=== PATIENT | female | born 1945 | race Caucasian/White ===

== ENCOUNTER 2016-09-06 15:45 | Inpatient (IN) | payer MEDICAID ==
[~2016-09-06] VITALS: Ht 142.2 cm; Wt 89.0 kg
[~2016-09-06 15:45] MED LIST: ATOR40TA68 PO; CALC500T99 PO; CEPH500C PO; LEVO25TA53 PO; LOSA25TA5 PO
[2016-09-06] MEDS ORDERED: METHYLPREDNISOLONE 125 MG INJ IV STA (16:42)
[2016-09-06] MEDS ORDERED: IPRATROPIUM (NEB) 0.5 MG/2.5 ML AMP NEB STA (16:42)
[2016-09-06] MEDS ORDERED: ALBUTEROL 0.5% (NEB) 2.5 MG/0.5 ML AMP NEB STA (16:42)
[2016-09-06 17:12] LABS: BASOPHILS % 0.5 % (0.0-2.0); EOSINOPHILS # 0.7 10^3/ul (0.0-0.5); EOSINOPHILS % 6.8 % (0.0-7.0); HEMATOCRIT 41.4 % (37.0-47.0); HEMOGLOBIN 13.7 g/dl (12.0-16.0); LYMPHOCYTES # 2.4 10^3/ul (0.8-2.9); LYMPHOCYTES % 23.8 % (15.0-51.0); MEAN CORPUSCULAR HEMOGLOBIN 30.4 pg (29.0-33.0); MEAN CORPUSCULAR HGB CONC 33.1 g/dl (32.0-37.0); MEAN CORPUSCULAR VOLUME 91.7 fl (82.0-101.0); MEAN PLATELET VOLUME 7.9 fl (7.4-10.4); MONOCYTE # 1.1 10^3/ul (0.3-0.9); MONOCYTES % 10.8 % (0.0-11.0); NEUTROPHIL # 5.8 10^3/ul (1.6-7.5); NEUTROPHILS % 58.1 % (39.0-77.0); PLATELET COUNT 246 10^3/UL (140-440); RED BLOOD COUNT 4.52 10^6/ul (4.20-5.40)
[2016-09-06 17:18] LABS: CONDITION 1; LH ANALYZER COMMENTS 1
[2016-09-06 17:22] LABS: CHLORIDE 103 mmol/L (97-110); POTASSIUM 3.9 mmol/L (3.5-5.1); SODIUM 144 mmol/L (135-144)
[2016-09-06 17:25] LABS: ANION GAP 15 (8-16); BLOOD UREA NITROGEN 10 mg/dl (7-20); CALCIUM 8.9 mg/dl (8.4-10.2); CARBON DIOXIDE 30 mmol/L (21-31); CREATININE 0.61 mg/dl (0.44-1.00); GLUCOSE 121 mg/dl (70-220)
[2016-09-06] MEDS ORDERED: ALBUTEROL 0.5% (NEB) 2.5 MG/0.5 ML AMP INH STA ×2 (17:32→19:21)
--- NOTE | 2016-09-06 17:32 | RADRPT ---
PROCEDURE: XR Chest. CLINICAL INDICATION: Asthma exacerbation. Cough. Shortness of breath. TECHNIQUE: Single frontal view. COMPARISON: 10/02/2015. FINDINGS: There is mild left basilar atelectasis. The lungs are otherwise clear. The heart size is normal. There is no pleural effusion. There is no pneumothorax. IMPRESSION: 1. Mild left basilar atelectasis. 2. Otherwise normal chest radiograph. RPTAT: QQ .Buck Fuller MD, MD Date Time Electronically viewed and signed by .Buck Fuller MD, MD on 09/06/2016 17:31 .R/
[2016-09-06 17:44] LABS: TROPONIN-I < 0.012 ng/ml (0.00-0.12)
[2016-09-06] MEDS ORDERED: GUAIFENESIN/DM 5ML CUP PO ONE (18:30)
[2016-09-06] MEDS ORDERED: KETOROLAC 15 MG INJ IV STA (18:39)
[2016-09-06] MEDS ORDERED: LOSA50TA6 PO (19:16)
[2016-09-06] MEDS ORDERED: IPRATROPIUM (NEB) 0.5 MG/2.5 ML AMP INH STA (19:21)
[2016-09-06] MEDS ORDERED: AZIT250T6 PO (19:23)
[2016-09-06] MEDS ORDERED: DEXT1DRO OP (19:25)
[2016-09-06] MEDS ORDERED: UDROBDM PO (19:26)
--- NOTE | 2016-09-06 20:37 | ERA ---
ER Documentation Chief Complaint Date/Time DATE: 09/06/16 TIME: 20:32 Chief Complaint SOB/COUGH X 8 DAYS HPI This is a 71-year-old female who presents to the emergency room for evaluation of shortness of breath, cough and generalized wheezing for the past 7 days. This patient has not been on any medications to help her with her breathing came to the ER today for evaluation. She denies any chest pain or palpitations associated with this. ROS All systems reviewed and are negative except as per history of present illness. Medications Home Meds Reported Medications Guaifenesin-Dextromethorphan* (Robitussin* DM) 100MG/10MG/5ML Syrup, 5 ML PO Q4H Y for COUGH, ML 09/06/16 Dextran 70/Hypromellose/Pf (Tears Naturale Free Drops) 1 Each Droperette, 1 EACH OP BID 09/06/16 Azithromycin* (Azithromycin*) 250 Mg Tablet, 500 MG PO DAILY, #1 TAB 09/06/16 Losartan Potassium* (Losartan Potassium*) 50 Mg Tablet, 50 MG PO DAILY, TAB 09/06/16 Calcium Carbonate ([id number]) 1 Tab Tablet, 1 TAB PO BID, TAB 10/02/15 Atorvastatin* (Atorvastatin*) 40 Mg Tablet, 40 MG PO DAILY, #30 TAB 10/02/15 Levothyroxine Sodium* (Levothyroxine Sodium*) 25 Mcg Tablet, 25 MCG PO BEFORE BREAKFAST, #30 TAB 10/02/15 Discontinued Reported Medications Losartan Potassium* (Losartan Potassium*) 25 Mg Tablet, 25 MG PO DAILY, TAB 10/02/15 Discontinued Scripts Cephalexin* (Cephalexin*) 500 Mg Capsule, 500 MG PO BID for 5 Days, CAP Prov:TITO BURNS 10/05/15 Allergies Allergies: Coded Allergies: No Known Allergy (Unverified , 09/06/16) PMhx/Soc History of Surgery: Yes (BILATERAL KNEE REPLACEMENT, CHOLECYSTECTOMY, C/S X 3) Anesthesia Reaction: No Hx Neurological Disorder: No Hx Respiratory Disorders: No Hx Cardiac Disorders: Yes (HTN, HIGH CHOLESTEROL) Hx Psychiatric Problems: No Hx Miscellaneous Medical Probl: No Hx Alcohol Use: No Hx Substance Use: No Hx Tobacco Use: No (STOP 40 YRS. AGO) Smoking Status: Former smoker Physical Exam Vitals Vital Signs Date Time Temp Pulse Resp B/P Pulse Ox O2 Delivery O2 Flow Rate FiO2 09/06/16 19:20 122 32 88 21 09/06/16 19:02 117 24 139/76 95 Mask 09/06/16 18:51 109 26 172/81 98 Room Air 09/06/16 17:53 2.0 09/06/16 17:52 92 20 95 Nasal Cannula 2.0 09/06/16 17:20 97.8 114 20 157/88 95 Nasal Cannula 3.0 09/06/16 17:20 Nasal Cannula 3 09/06/16 16:52 87 20 96 21 09/06/16 15:56 98.0 93 18 225/95 94 Physical Exam INITIAL VITAL SIGNS: Reviewed by me GENERAL: The patient is well developed, mild respiratory distress, tachypnea HEENT: Pupils equal, round, and reactive to light. EOMI. There is no scleral icterus. NECK: C-spine is soft and supple, there is no meningismus. There is no cervical lymphadenopathy. LUNGS: Diffuse wheezing auscultated in the bilateral upper and lower lobes HEART: Tachycardic, no murmurs, clicks, rubs or gallops. ABDOMEN: Soft, non-tender, non-distended. There are bowel sounds in all four quadrants. No rebound or guarding. EXTREMITIES: There is no peripheral cyanosis or edema. No focal swelling or erythema. NEUROLOGICAL: The patient moves all four extremities with 5/5 strength. Cranial nerves II - XII are intact. Normal gait. Alert and oriented SKIN: There is no apparent rash or petechiae. HEME/LYMPHATIC: There is no evidence of excessive bruising or lymphedema. PSYCHIATRIC: The patient does not appear anxious or depressed. Result Diagram: 09/06/16 1700 09/06/16 1700 Results 24 hrs Laboratory Tests Test 09/06/16 17:00 Anion Gap 15 Basophils # 0.010^3/ul Basophils % 0.5% Blood Morphology Comment Blood Urea Nitrogen 10mg/dl Calcium Level 8.9mg/dl Carbon Dioxide Level 30mmol/L Chloride Level 103mmol/L Creatinine 0.61mg/dl Eosinophils # 0.710^3/ul Eosinophils % 6.8% Glucose Level 121mg/dl Hematocrit 41.4% Hemoglobin 13.7g/dl Lymphocytes # 2.410^3/ul Lymphocytes % 23.8% Mean Corpuscular Hemoglobin 30.4pg Mean Corpuscular Hemoglobin Concent 33.1g/dl Mean Corpuscular Volume 91.7fl Mean Platelet Volume 7.9fl Monocytes # 1.110^3/ul Monocytes % 10.8% Neutrophils # 5.810^3/ul Neutrophils % 58.1% Nucleated Red Blood Cells # 0.010^3/ul Nucleated Red Blood Cells % 0.0/100WBC Platelet Count 34021^3/UL Potassium Level 3.9mmol/L Red Blood Count 4.5210^6/ul Red Cell Distribution Width 15.0% Sodium Level 144mmol/L Troponin I < 0.012ng/ml White Blood Count 10.010^3/ul Current Medications Medications (Trade) Dose Ordered Sig/Juju Route PRN Reason Start Time Stop Time Status Last Admin Dose Admin Albuterol (Proventil 0.5% (Neb)) 10 mg ONCE STAT NEB 09/06/16 16:42 09/06/16 16:43 DC 09/06/16 16:51 Ipratropium Sherborn (Atrovent 0.02% (Neb)) 1.5 mg ONCE STAT NEB 09/06/16 16:42 09/06/16 16:43 DC 09/06/16 16:51 Methylprednisolone Sodium Succinate (Solu-Medrol) 125 mg ONCE STAT IV 09/06/16 16:42 09/06/16 16:43 DC 09/06/16 17:07 Albuterol (Proventil 0.5% (Neb)) 15 mg ONCE STAT INH 09/06/16 17:32 09/06/16 17:33 DC 09/06/16 17:51 Guaifenesin/ Dextromethorphan (Robitussin Dm Liquid Cup) 10 ml ONCE ONCE PO 09/06/16 18:30 09/06/16 18:31 DC 09/06/16 18:30 Ketorolac Tromethamine (Toradol) 15 mg ONCE STAT IV 09/06/16 18:39 09/06/16 18:40 DC 09/06/16 18:48 Albuterol (Proventil 0.5% (Neb)) 15 mg ONCE STAT INH 09/06/16 19:21 09/06/16 19:22 DC 09/06/16 19:32 Ipratropium Sherborn (Atrovent 0.02% (Neb)) 1 mg ONCE STAT INH 09/06/16 19:21 09/06/16 19:22 DC 09/06/16 19:31 Procedures/MDM EKG: Rate/Rhythm: Sinus tachycardia QRS, ST, T-waves: [No changes consistent w/ acute ischemia] Impression: [No evidence of ischemia or arrhythmia] Chest X-ray 1V Interpreted by me: Soft Tissue: Left lower lobe atelectasis Bones: No acute abnormalities Mediastinum/Cardiac Silhouette/Lungs: [No acute abnormalities] This 71-year-old female presents to the emergency room for evaluation of wheezing, shortness of breath and mild respiratory distress. When I evaluated her she was tachypnea, tachycardic, and had a pulse ox of 88% on room air. The patient was started on a breathing treatment with albuterol, Atrovent. She was given Solu-Medrol intravenously. When I reevaluated her she still continues to have mild wheezing and tachypnea. She was given an hour-long breathing treatment with albuterol. After her second breathing treatment she is still continued to wheeze and was given a third breathing treatment of albuterol, Atrovent. After her third breathing treatment I reevaluated her again and on room air she was 87%. I believe this patient will benefit from inpatient hospitalization and continue steroids and breathing treatments. The patient does not have any signs of pneumothorax or filtrate on x-ray. Lab work is within normal limits. EKG is nonischemic. The patient will be placed in for admission to a telemetry floor under the care of her panel physician Dr. Odom Critical Care: Excluding all billable procedures Time: 33 minutes Treatments/Evaluations: Emergent and rapid respiratory assessment and management with continuous monitoring. Advanced airway equipment at the ready, while the patient's respiratory symptoms were stabilized, multiple bedside evaluations, multiple breathing treatments, Departure Diagnosis: Primary Impression: Acute respiratory failure Additional Impressions: Acute bronchitis Acute respiratory failure with hypoxia Condition: ESTRELLITA Johnson DO Sep 06, 2016 20:37
[2016-09-06] MEDS ORDERED: ACETAMINOPHEN 325 MG TAB PO PRN (21:00)
[2016-09-06] MEDS ORDERED: ONDANSETRON 4 MG INJ IV PRN ×2 (21:00→23:30)
[2016-09-06 21:40] VITALS: TEMP 97.7
[2016-09-06 22:30] VITALS: BP 140/62; PULSE 110; RESP 22; Ht 142.2 cm; Wt 89.0 kg
[2016-09-06] MEDS: SALMETEROL/FLUTICASONE 250/50 INHA INH SCH (23:30)
[2016-09-06] MEDS ORDERED: LEVALBUTEROL (NEB) 1.25 MG/0.5 ML AMP HHN PRN (23:30)
[2016-09-06] MEDS ORDERED: IPRATROPIUM (NEB) 0.5 MG/2.5 ML AMP HHN PRN (23:30)
[2016-09-06 23:58] VITALS: BP 140/62; RESP 20
[2016-09-07] VITALS (12 sets, daily range): BP systolic 125–157; BP diastolic 58–79; PULSE 82–118; RESP 18–20
[2016-09-07] MEDS: GUAIFENESIN/DM 5ML CUP PO PRN (00:54)
[2016-09-07] MEDS: LEVOFLOXACIN 500MG/D5W (PMX) 100 ML IVPB SCH ×2 (00:56→23:33)
[2016-09-07] MEDS: ACETAMINOPHEN 325 MG TAB PO PRN (02:37)
[2016-09-07] MEDS: LEVOTHYROXINE 25 MCG TAB PO SCH (07:01)
[2016-09-07] MEDS: CALCIUM CARBONATE 1.25 GM TAB PO SCH ×2 (09:11→20:49)
[2016-09-07] MEDS: ATORVASTATIN 40 MG TAB PO SCH (09:11)
[2016-09-07] MEDS: LOSARTAN 50 MG TAB PO SCH (09:12)
[2016-09-07] MEDS: SALMETEROL/FLUTICASONE 250/50 INHA INH SCH ×2 (09:12→20:48)
[2016-09-07] MEDS: METHYLPREDNISOLONE 40 MG INJ IV SCH ×2 (09:12→20:48)
[2016-09-07] MEDS: CARBOXYMETHYLCELLULOSE 0.5% 0.1 ML OPH BOTH EYES SCH ×2 (09:12→20:48)
[2016-09-07] MEDS ORDERED: morphine 2 MG INJ ONE (11:55)
[2016-09-07] MEDS: morphine 2 MG INJ IV PRN ×2 (12:00→17:27)
--- NOTE | 2016-09-07 15:51 | HP ---
Date/Time of Note Date/Time of Note DATE: 09/07/16 TIME: 15:48 Assessment/Plan VTE Prophylaxis VTE Prophylaxis Intervention: SCD's Lines/Catheters Urinary Cath still in place: No Assessment/Plan Assessment/Plan 1. SOB and Cough, likely bronchitis vs reactive airway disease - Oxygen, bronchodilators, abx and as needed steroid 2. HTN - Cont anti-hypertensives and adjust as needed 3. Hypothyroidism - cont synthroid. 4. Obesity with BMI of 44 - weight loss was advised HPI/ROS Admit Date/Time Admit Date/Time Sep 06, 2016 at 20:31 Hx of Present Illness This is a 71 yo female with hx of HTN, hypothyroidism and pyelonephritis who walked-in to ED complaining of SOB and cough of 4 days duration. Cough has been dry. Denied chest pain, fever, chills nausea or vomiting. In ED, O2sat was 94% on room air and was slightly tachycardic with HR of 94. Basic labs were WNL and CXR showed mild left basilar atelectasis.. She received 125mg of solumedrol and repeated breathing treatments with duonebs, but symptoms persisted even though there was improvement. . PMH/Family/Social Past Medical History Medical History: hypertension, hypothyroid, other (pyelonephritis) Social History Alcohol Use: none Smoking Status: Never smoker Drug Use: none Exam/Review of Systems Vital Signs Vitals Vital Signs Date Time Temp Pulse Resp B/P Pulse Ox O2 Delivery O2 Flow Rate FiO2 09/07/16 12:24 93 09/07/16 12:21 98.1 18 157/79 93 09/07/16 08:00 Nasal Cannula 2.0 09/06/16 19:20 21 Intake and Output 09/06/16 09/06/16 09/07/16 15:00 23:00 07:00 Intake Total 550 ml Balance 550 ml Exam Constitutional: alert, oriented, well developed Head: atraumatic, normocephalic Eyes: EOMI, PERRL Respiratory: wheezing Cardiovascular: other (tachycardic with regular rhythm) Gastrointestinal: non-tender, soft Extremities: normal pulses Labs Result Diagram: 09/06/16 1700 09/06/16 1700 Medications Medications Current Medications Levofloxacin/ Dextrose (Levaquin 500mg/ D5W 100 ml (Pmx)) 100 ml @ 100 mls/hr Q24H IVPB Last administered on 09/07/16 00:56; Admin Dose 100 MLS/HR; Start at 23:30 Methylprednisolone Sodium Succinate (Solu-Medrol) 40 mg Q12 IV Last administered on 09/07/16 09:12; Admin Dose 40 MG; Start 09/07/16 at 09:00 Ondansetron HCl (Zofran Inj) 4 mg Q6H PRN IV NAUSEA AND/OR VOMITING Last administered on 09/07/16 12:00; Admin Dose 4 MG; Start 09/06/16 at 23:30 Salmeterol Xinafoate/ Fluticasone (Advair 250/50 Diskus) 1 inh BID INH Last administered on 09/07/16 09:12; Admin Dose 1 INH; Start 09/06/16 at 23:30 Acetaminophen (Tylenol Tab) 650 mg Q6H PRN PO PAIN AND OR ELEVATED TEMP Last administered on 09/07/16 02:37; Admin Dose 650 MG; Start 09/06/16 at 23:30 Atorvastatin Calcium (Lipitor) 40 mg DAILY PO Last administered on 09/07/16 09 :11; Admin Dose 40 MG; Start 09/07/16 at 09:00 Calcium Carbonate (Oyster Shell Calcium) 1.25 gm BID PO Last administered on 09:11; Admin Dose 1.25 GM; Start 09/07/16 at 09:00 Guaifenesin/ Dextromethorphan (Robitussin Dm Liquid Cup) 5 ml Q4H PRN PO COUGH Last administered on 09/07/16 00:54; Admin Dose 5 ML; Start 09/07/16 at 00:00 Losartan Potassium (Cozaar) 50 mg DAILY PO Last administered on 09/07/16 09:12 ; Admin Dose 50 MG; Start 09/07/16 at 09:00 Eye Lubricant (Refresh Plus) 1 drop BID BOTH EYES Last administered on 09:12; Admin Dose 1 DROP; Start 09/07/16 at 09:00 Morphine Sulfate (morphine) 1 mg Q4H PRN IV PAIN LEVEL 6-10 Last administered on 09/07/16 12:00; Admin Dose 1 MG; Start 09/07/16 at 12:00 Pantoprazole (Protonix Tab) 40 mg DAILY@06 PO ; Start 09/08/16 at 06:00 Heparin Sodium (Porcine) (Heparin (5000 Units/0.5 ml)) 5,000 unit BID SC ; Start 09/07/16 at 21:00 FACUNDO PHILLIPS MD Sep 07, 2016 15:51
--- NOTE | 2016-09-07 18:42 | PN ---
DATE: 09/07/2016 SUBJECTIVE: The patient has less shortness of breath symptoms presently. No acute events overnight . OBJECTIVE VITAL SIGNS: Stable. GENERAL: Patient sitting in chair, answering questions, in no acute distress. HEENT: Pupils equal, round, reactive to light. Extraocular muscles intact. NECK: Supple, no thyromegaly. LUNGS: Slightly prolonged breath sounds bilaterally, no wheezes. CARDIOVASCULAR: S1, S2 heard. No rubs or gallops. ABDOMEN: Soft, nontender, nondistended. Normal bowel sounds. No rebound or guarding. MUSCULOSKELETAL: No lower extremity edema bilaterally. NEUROLOGIC: No focal deficits. LABORATORY DATA: There is no new CBC or basic metabolic panel from this morning. IMAGING: Chest x-ray showed mild bibasilar atelectasis, otherwise normal chest radiograph. ASSESSMENT AND PLAN: A 71-year-old female who presented with shortness of breath and cough for 1 we ek, found with signs of bronchitis versus mild COPD exacerbation. 1. Shortness of breath, again secondary to a combination of bronchitis and mild chronic obstructive pulmonary disease. Continue breathing treatments and steroids. Also on Levaquin antibiotics. Foll ow up breathing status in the morning. The patient is a former smoker. She quit about 40 years ago. Continue Advair as well. 2. Essential hypertension. Blood pressure stable. Continue Cozaar, blood pressure medication. 3. Hypothyroidism, stable. Continue Levoxyl. 4. Gastrointestinal prophylaxis. Add PPI and prophylaxis. Heparin subcutaneously. Consider bia marquez PT consult as well. Dictated By: JAZMIN WATSON Conf#: [id number] DID#: [id number]
[2016-09-07] MEDS: HEPARIN 5,000 UNIT/0.5 ML SYG SC SCH (20:49)
[2016-09-08] VITALS (12 sets, daily range): BP systolic 122–150; BP diastolic 63–80; PULSE 62–88; RESP 20–22
[2016-09-08] MEDS: PANTOPRAZOLE (EC) 40 MG TAB PO SCH (06:01)
[2016-09-08 07:49] LABS: BASOPHILS % 0.1 % (0.0-2.0); HEMATOCRIT 40.4 % (37.0-47.0); HEMOGLOBIN 13.4 g/dl (12.0-16.0); LYMPHOCYTES # 1.6 10^3/ul (0.8-2.9); LYMPHOCYTES % 7.2 % (15.0-51.0); MEAN CORPUSCULAR HEMOGLOBIN 30.9 pg (29.0-33.0); MEAN CORPUSCULAR HGB CONC 33.3 g/dl (32.0-37.0); MEAN CORPUSCULAR VOLUME 92.7 fl (82.0-101.0); MEAN PLATELET VOLUME 8.2 fl (7.4-10.4); MONOCYTES % 4.4 % (0.0-11.0); NEUTROPHIL # 19.9 10^3/ul (1.6-7.5); NEUTROPHILS % 88.3 % (39.0-77.0); PLATELET COUNT 251 10^3/UL (140-440); RED BLOOD COUNT 4.36 10^6/ul (4.20-5.40); RED CELL DISTRIBUTION WIDTH 15.6 % (11.5-14.5); UNCORRECTED WBC 22.6 10^3/ul (4.8-10.8); WHITE BLOOD COUNT 22.6 10^3/ul (4.8-10.8)
[2016-09-08 07:52] LABS: CONDITION 1; LH ANALYZER COMMENTS 1
[2016-09-08 07:59] LABS: POTASSIUM 4.8 mmol/L (3.5-5.1)
[2016-09-08 08:02] LABS: CALCIUM 9.6 mg/dl (8.4-10.2); CREATININE 0.65 mg/dl (0.44-1.00)
[2016-09-08] MEDS: CARBOXYMETHYLCELLULOSE 0.5% 0.1 ML OPH BOTH EYES SCH ×2 (08:45→21:33)
[2016-09-08] MEDS: SALMETEROL/FLUTICASONE 250/50 INHA INH SCH ×2 (08:45→21:32)
[2016-09-08] MEDS: ATORVASTATIN 40 MG TAB PO SCH (08:46)
[2016-09-08] MEDS: METHYLPREDNISOLONE 40 MG INJ IV SCH ×2 (08:46→21:33)
[2016-09-08] MEDS: LEVOTHYROXINE 25 MCG TAB PO SCH (08:46)
[2016-09-08] MEDS: CALCIUM CARBONATE 1.25 GM TAB PO SCH ×2 (08:46→21:33)
[2016-09-08] MEDS: LOSARTAN 50 MG TAB PO SCH (08:49)
[2016-09-08] MEDS: HEPARIN 5,000 UNIT/0.5 ML SYG SC SCH ×2 (08:50→21:34)
--- NOTE | 2016-09-08 11:16 | PN ---
Date/Time of Note Date/Time of Note DATE: 09/08/16 TIME: 10:51 Assessment/Plan VTE Prophylaxis VTE Prophylaxis Intervention: heparin Lines/Catheters IV Catheter Type (from Nrs): Saline Lock Urinary Cath still in place: No Assessment/Plan Assessment/Plan 1. COPD exacerbation, on levaquin, neb/steroid, decrease SoluMedrol 2. Essential hypertension. Blood pressure stable. Continue Cozaar, blood pressure medication. 3. Hypothyroidism, stable. Continue Levoxyl. 4. DVT prophylaxis: heparin Subjective 24 Hr Interval Summary Free Text/Dictation still cough with SOB Exam/Review of Systems Vital Signs Vitals Vital Signs Date Time Temp Pulse Resp B/P Pulse Ox O2 Delivery O2 Flow Rate FiO2 09/08/16 08:26 62 09/08/16 08:24 97.8 20 125/67 99 09/07/16 20:00 Nasal Cannula 2.0 09/06/16 19:20 21 Intake and Output 09/07/16 09/07/16 09/08/16 15:00 23:00 07:00 Intake Total 720 ml 300 ml Balance 720 ml 300 ml Exam Constitutional: alert, oriented, well developed Psych: nl mood/affect, no complaints Head: atraumatic, normocephalic Eyes: EOMI, PERRL, nl conjunctiva, nl lids ENMT: nl external ears & nose, nl lips & teeth, nl nasal mucosa & septum Neck: non-tender, supple Respiratory: crackles/rales (on left side), diminished breath sounds Cardiovascular: nl pulses, regular rate and rhythm, No S3, No S4, No bruits, No diastolic murmur, No edema, No gallop, No irregular rhythm, No jugular venous distention (JVD), No murmurs/extra sounds, No rub, No systolic murmur Gastrointestinal: nl liver, spleen, non-tender, soft, No ascites, No bowel sounds, No distended, No firm, No hepatomegaly, No mass , No rebound or guarding, No splenomegaly, No surgical scars, No tender Musculoskeletal: nl extremities to inspection Extremities: normal pulses, No calf tenderness, No clubbing, No cyanosis, No edema, No palpable cord, No pitting pedal edema, No tenderness Neurological: OUTSIDE SALES II-XII intact, nl mental status, nl speech, nl strength Skin: nl turgor, rash or lesions Lymph: nl lymph nodes Results Result Diagram: 09/08/16 0624 09/08/16 0624 Results 24 hrs Laboratory Tests Test 09/08/16 06:24 Anion Gap 18 H Basophils # 0.0 Basophils % 0.1 Blood Morphology Comment Blood Urea Nitrogen 20 Calcium Level 9.6 Carbon Dioxide Level 27 Chloride Level 101 Creatinine 0.65 Eosinophils # 0.0 Eosinophils % 0.0 Glucose Level 146 Hematocrit 40.4 Hemoglobin 13.4 Lymphocytes # 1.6 Lymphocytes % 7.2 L Mean Corpuscular Hemoglobin 30.9 Mean Corpuscular Hemoglobin Concent 33.3 Mean Corpuscular Volume 92.7 Mean Platelet Volume 8.2 Monocytes # 1.0 H Monocytes % 4.4 Neutrophils # 19.9 H Neutrophils % 88.3 H Nucleated Red Blood Cells # 0.0 Nucleated Red Blood Cells % 0.0 Platelet Count 251 Potassium Level 4.8 Red Blood Count 4.36 Red Cell Distribution Width 15.6 H Sodium Level 141 White Blood Count 22.6 #H Medications Medications Current Medications Levofloxacin/ Dextrose (Levaquin 500mg/ D5W 100 ml (Pmx)) 100 ml @ 100 mls/hr Q24H IVPB Last administered on 09/07/16 23:33; Admin Dose 100 MLS/HR; Start at 23:30 Methylprednisolone Sodium Succinate (Solu-Medrol) 40 mg Q12 IV Last administered on 09/08/16 08:46; Admin Dose 40 MG; Start 09/07/16 at 09:00 Ondansetron HCl (Zofran Inj) 4 mg Q6H PRN IV NAUSEA AND/OR VOMITING Last administered on 09/07/16 12:00; Admin Dose 4 MG; Start 09/06/16 at 23:30 Salmeterol Xinafoate/ Fluticasone (Advair 250/50 Diskus) 1 inh BID INH Last administered on 09/08/16 08:45; Admin Dose 1 INH; Start 09/06/16 at 23:30 Acetaminophen (Tylenol Tab) 650 mg Q6H PRN PO PAIN AND OR ELEVATED TEMP Last administered on 09/07/16 02:37; Admin Dose 650 MG; Start 09/06/16 at 23:30 Atorvastatin Calcium (Lipitor) 40 mg DAILY PO Last administered on 09/08/16 08 :46; Admin Dose 40 MG; Start 09/07/16 at 09:00 Calcium Carbonate (Oyster Shell Calcium) 1.25 gm BID PO Last administered on 08:46; Admin Dose 1.25 GM; Start 09/07/16 at 09:00 Guaifenesin/ Dextromethorphan (Robitussin Dm Liquid Cup) 5 ml Q4H PRN PO COUGH Last administered on 09/07/16 00:54; Admin Dose 5 ML; Start 09/07/16 at 00:00 Losartan Potassium (Cozaar) 50 mg DAILY PO Last administered on 09/08/16 08:49 ; Admin Dose 50 MG; Start 09/07/16 at 09:00 Eye Lubricant (Refresh Plus) 1 drop BID BOTH EYES Last administered on 08:45; Admin Dose 1 DROP; Start 09/07/16 at 09:00 Morphine Sulfate (morphine) 1 mg Q4H PRN IV PAIN LEVEL 6-10 Last administered on 09/07/16 17:27; Admin Dose 1 MG; Start 09/07/16 at 12:00 Pantoprazole (Protonix Tab) 40 mg DAILY@06 PO Last administered on 09/08/16 06 :01; Admin Dose 40 MG; Start 09/08/16 at 06:00 Heparin Sodium (Porcine) (Heparin (5000 Units/0.5 ml)) 5,000 unit BID SC Last administered on 09/08/16 08:50; Admin Dose 5,000 UNIT; Start 09/07/16 at 21:00 KENAN SANDERS MD Sep 08, 2016 11:04
[2016-09-08] MEDS: ACETAMINOPHEN 325 MG TAB PO PRN (12:44)
[2016-09-08] MEDS: morphine 2 MG INJ IV PRN (16:43)
[2016-09-08] MEDS: LEVOFLOXACIN 500MG/D5W (PMX) 100 ML IVPB SCH (23:49)
[2016-09-09 01:00] VITALS: BP 173/77; PULSE 62; RESP 18
[2016-09-09] MEDS: hydrALAzine 20 MG INJ IV PRN ×2 (01:26→09:20)
[2016-09-09 02:00] VITALS: BP 125/60; PULSE 80; RESP 19
[2016-09-09] MEDS: PANTOPRAZOLE (EC) 40 MG TAB PO SCH (06:09)
[2016-09-09 06:23] LABS: CONDITION 1; HEMATOCRIT 39.9 % (37.0-47.0); HEMOGLOBIN 13.7 g/dl (12.0-16.0); LH ANALYZER COMMENTS 1; LYMPHOCYTES # 1.4 10^3/ul (0.8-2.9); MEAN CORPUSCULAR HEMOGLOBIN 31.4 pg (29.0-33.0); MEAN CORPUSCULAR HGB CONC 34.3 g/dl (32.0-37.0); MEAN CORPUSCULAR VOLUME 91.8 fl (82.0-101.0); MEAN PLATELET VOLUME 8.1 fl (7.4-10.4); MONOCYTE # 0.7 10^3/ul (0.3-0.9); MONOCYTES % 3.7 % (0.0-11.0); NEUTROPHIL # 15.5 10^3/ul (1.6-7.5); NEUTROPHILS % 88.3 % (39.0-77.0); PLATELET COUNT 254 10^3/UL (140-440); RED BLOOD COUNT 4.35 10^6/ul (4.20-5.40); RED CELL DISTRIBUTION WIDTH 15.1 % (11.5-14.5); UNCORRECTED WBC 17.6 10^3/ul (4.8-10.8); WHITE BLOOD COUNT 17.6 10^3/ul (4.8-10.8)
[2016-09-09 06:32] LABS: POTASSIUM 4.4 mmol/L (3.5-5.1)
[2016-09-09 06:35] LABS: CALCIUM 9.1 mg/dl (8.4-10.2); CREATININE 0.59 mg/dl (0.44-1.00)
[2016-09-09 08:24] VITALS: BP 168/77; RESP 18
[2016-09-09] MEDS: CARBOXYMETHYLCELLULOSE 0.5% 0.1 ML OPH BOTH EYES SCH ×3 (09:00→23:04)
[2016-09-09] MEDS: LEVOTHYROXINE 25 MCG TAB PO SCH (09:19)
[2016-09-09] MEDS: ATORVASTATIN 40 MG TAB PO SCH (09:19)
[2016-09-09] MEDS: SALMETEROL/FLUTICASONE 250/50 INHA INH SCH ×2 (09:19→21:47)
[2016-09-09] MEDS: METHYLPREDNISOLONE 40 MG INJ IV SCH ×2 (09:20→17:30)
[2016-09-09] MEDS: LOSARTAN 50 MG TAB PO SCH (09:20)
[2016-09-09] MEDS: HEPARIN 5,000 UNIT/0.5 ML SYG SC SCH ×2 (09:22→21:49)
[2016-09-09] MEDS: CALCIUM CARBONATE 1.25 GM TAB PO SCH ×2 (09:27→21:47)
--- NOTE | 2016-09-09 14:31 | PN ---
Date/Time of Note Date/Time of Note DATE: 09/09/16 TIME: 14:29 Assessment/Plan VTE Prophylaxis VTE Prophylaxis Intervention: heparin Lines/Catheters IV [facility] Saline Lock Urinary Cath still in place: No Assessment/Plan Assessment/Plan 1. COPD exacerbation, on levaquin, neb/steroid, decrease SoluMedrol, add singulair 2. Essential hypertension. Blood pressure stable. increase Cozaar, 3. Hypothyroidism, stable. Continue Levoxyl. 4. DVT prophylaxis: heparin Subjective 24 Hr Interval Summary Free Text/Dictation still cough with SOB Exam/Review of Systems Vital Signs Vitals Vital Signs Date Time Temp Pulse Resp B/P Pulse Ox O2 Delivery O2 Flow Rate FiO2 09/09/16 08:24 98.2 75 18 168/77 95 09/09/16 05:28 2.0 09/09/16 02:00 Nasal Cannula 09/06/16 19:20 21 Intake and Output 09/08/16 09/08/16 09/09/16 15:00 23:00 07:00 Intake Total 800 ml 300 ml Balance 800 ml 300 ml Exam Constitutional: alert, oriented, well developed Psych: nl mood/affect, no complaints Head: atraumatic, normocephalic Eyes: EOMI, PERRL, nl conjunctiva, nl lids ENMT: nl external ears & nose, nl lips & teeth, nl nasal mucosa & septum Neck: non-tender, supple Respiratory: diminished breath sounds, wheezing Cardiovascular: nl pulses, regular rate and rhythm, No S3, No S4, No bruits, No diastolic murmur, No edema, No gallop, No irregular rhythm, No jugular venous distention (JVD), No murmurs/extra sounds, No other, No rub, No systolic murmur Gastrointestinal: nl liver, spleen, non-tender, soft, No ascites, No bowel sounds, No distended, No firm, No hepatomegaly, No mass , No other, No rebound or guarding, No splenomegaly, No surgical scars, No tender Musculoskeletal: nl extremities to inspection Extremities: normal pulses, No calf tenderness, No clubbing, No cyanosis, No edema, No other, No palpable cord, No pitting pedal edema, No tenderness Neurological: C[employer] II-XII intact, nl mental status, nl speech, nl strength Skin: nl turgor, rash or lesions Lymph: nl lymph nodes Results Result Diagram: 09/09/16 0533 09/09/16 0533 Results 24 hrs Laboratory Tests Test 09/09/16 05:33 Anion Gap 16 Basophils # 0.0 Basophils % 0.0 Blood Morphology Comment Blood Urea Nitrogen 19 Calcium Level 9.1 Carbon Dioxide Level 29 Chloride Level 101 Creatinine 0.59 Eosinophils # 0.0 Eosinophils % 0.0 Glucose Level 133 Hematocrit 39.9 Hemoglobin 13.7 Lymphocytes # 1.4 Lymphocytes % 8.0 L Mean Corpuscular Hemoglobin 31.4 Mean Corpuscular Hemoglobin Concent 34.3 Mean Corpuscular Volume 91.8 Mean Platelet Volume 8.1 Monocytes # 0.7 Monocytes % 3.7 Neutrophils # 15.5 H Neutrophils % 88.3 H Nucleated Red Blood Cells # 0.0 Nucleated Red Blood Cells % 0.0 Platelet Count 254 Potassium Level 4.4 Red Blood Count 4.35 Red Cell Distribution Width 15.1 H Sodium Level 142 White Blood Count 17.6 #H Medications Medications Current Medications Levofloxacin/ Dextrose (Levaquin 500mg/ D5W 100 ml (Pmx)) 100 ml @ 100 mls/hr Q24H IVPB Last administered on 09/08/16 23:49; Admin Dose 100 MLS/HR; Start at 23:30 Methylprednisolone Sodium Succinate (Solu-Medrol) 40 mg Q12 IV Last administered on 09/09/16 09:20; Admin Dose 40 MG; Start 09/07/16 at 09:00 Ondansetron HCl (Zofran Inj) 4 mg Q6H PRN IV NAUSEA AND/OR VOMITING Last administered on 09/07/16 12:00; Admin Dose 4 MG; Start 09/06/16 at 23:30 Salmeterol Xinafoate/ Fluticasone (Advair 250/50 Diskus) 1 inh BID INH Last administered on 09/09/16 09:19; Admin Dose 1 INH; Start 09/06/16 at 23:30 Acetaminophen (Tylenol Tab) 650 mg Q6H PRN PO PAIN AND OR ELEVATED TEMP Last administered on 09/08/16 12:44; Admin Dose 650 MG; Start 09/06/16 at 23:30 Atorvastatin Calcium (Lipitor) 40 mg DAILY PO Last administered on 09/09/16 09 :19; Admin Dose 40 MG; Start 09/07/16 at 09:00 Calcium Carbonate (Oyster Shell Calcium) 1.25 gm BID PO Last administered on 09:27; Admin Dose 1.25 GM; Start 09/07/16 at 09:00 Guaifenesin/ Dextromethorphan (Robitussin Dm Liquid Cup) 5 ml Q4H PRN PO COUGH Last administered on 09/07/16 00:54; Admin Dose 5 ML; Start 09/07/16 at 00:00 Losartan Potassium (Cozaar) 50 mg DAILY PO Last administered on 09/09/16 09:20 ; Admin Dose 50 MG; Start 09/07/16 at 09:00 Eye Lubricant (Refresh Plus) 1 drop BID BOTH EYES Last administered on 12:08; Admin Dose 1 DROP; Start 09/07/16 at 09:00 Morphine Sulfate (morphine) 1 mg Q4H PRN IV PAIN LEVEL 6-10 Last administered on 09/08/16 16:43; Admin Dose 1 MG; Start 09/07/16 at 12:00 Pantoprazole (Protonix Tab) 40 mg DAILY@06 PO Last administered on 09/09/16 06 :09; Admin Dose 40 MG; Start 09/08/16 at 06:00 Heparin Sodium (Porcine) (Heparin (5000 Units/0.5 ml)) 5,000 unit BID SC Last administered on 09/09/16 09:22; Admin Dose 5,000 UNIT; Start 09/07/16 at 21:00 Hydralazine HCl (Apresoline) 10 mg Q6H PRN IV ELEVATED BLOOD PRESSURE Last administered on 09/09/16 09:20; Admin Dose 10 MG; Start 09/09/16 at 01:30 KENAN SANDERS MD Sep 09, 2016 14:31
[2016-09-09] MEDS: GUAIFENESIN/DM 5ML CUP PO PRN ×2 (15:04→21:58)
[2016-09-09] MEDS ORDERED: IPRATROPIUM (NEB) 0.5 MG/2.5 ML AMP HHN PRN (17:00)
[2016-09-09 20:00] VITALS: BP 144/72; PULSE 98; RESP 18
[2016-09-09] MEDS: LEVALBUTEROL (NEB) 1.25 MG/0.5 ML AMP HHN SCH (21:17)
[2016-09-09] MEDS: IPRATROPIUM (NEB) 0.5 MG/2.5 ML AMP HHN SCH (21:18)
[2016-09-09] MEDS: MONTELUKAST 10 MG TAB PO SCH (21:46)
[2016-09-09] MEDS: LEVOFLOXACIN 500MG/D5W (PMX) 100 ML IVPB SCH (23:04)
[2016-09-10] MEDS: METHYLPREDNISOLONE 40 MG INJ IV SCH ×4 (01:00→23:46)
[2016-09-10] MEDS: IPRATROPIUM (NEB) 0.5 MG/2.5 ML AMP HHN SCH ×4 (03:03→20:47)
[2016-09-10] MEDS: LEVALBUTEROL (NEB) 1.25 MG/0.5 ML AMP HHN SCH ×4 (03:03→20:47)
[2016-09-10] MEDS: GUAIFENESIN/DM 5ML CUP PO PRN ×3 (05:11→15:33)
[2016-09-10] MEDS: PANTOPRAZOLE (EC) 40 MG TAB PO SCH (05:12)
[2016-09-10] MEDS: LEVOTHYROXINE 25 MCG TAB PO SCH (05:12)
[2016-09-10 06:11] LABS: POTASSIUM 4.3 mmol/L (3.5-5.1)
[2016-09-10 06:14] LABS: CREATININE 0.62 mg/dl (0.44-1.00)
[2016-09-10 06:15] LABS: CALCIUM 9.1 mg/dl (8.4-10.2)
[2016-09-10 07:47] VITALS: BP 132/60; RESP 19
[2016-09-10] MEDS: LOSARTAN 50 MG TAB PO SCH (08:32)
[2016-09-10] MEDS: CALCIUM CARBONATE 1.25 GM TAB PO SCH ×2 (08:32→21:10)
[2016-09-10] MEDS: ATORVASTATIN 40 MG TAB PO SCH (08:33)
[2016-09-10] MEDS: SALMETEROL/FLUTICASONE 250/50 INHA INH SCH ×2 (08:33→21:11)
[2016-09-10] MEDS: HEPARIN 5,000 UNIT/0.5 ML SYG SC SCH ×2 (08:36→21:11)
[2016-09-10] MEDS: CARBOXYMETHYLCELLULOSE 0.5% 0.1 ML OPH BOTH EYES SCH ×2 (08:46→21:00)
[2016-09-10 09:02] LABS: HEMATOCRIT 40.4 % (37.0-47.0); HEMOGLOBIN 13.6 g/dl (12.0-16.0); LYMPHOCYTES % 7.3 % (15.0-51.0); MEAN CORPUSCULAR HEMOGLOBIN 31.1 pg (29.0-33.0); MEAN CORPUSCULAR HGB CONC 33.6 g/dl (32.0-37.0); MEAN CORPUSCULAR VOLUME 92.5 fl (82.0-101.0); MEAN PLATELET VOLUME 8.6 fl (7.4-10.4); MONOCYTE # 0.8 10^3/ul (0.3-0.9); MONOCYTES % 6.2 % (0.0-11.0); NEUTROPHIL # 11.7 10^3/ul (1.6-7.5); NEUTROPHILS % 86.5 % (39.0-77.0); PLATELET COUNT 249 10^3/UL (140-440); RED BLOOD COUNT 4.37 10^6/ul (4.20-5.40); RED CELL DISTRIBUTION WIDTH 15.5 % (11.5-14.5); UNCORRECTED WBC 13.5 10^3/ul (4.8-10.8); WHITE BLOOD COUNT 13.5 10^3/ul (4.8-10.8)
[2016-09-10 09:06] LABS: CONDITION 1; LH ANALYZER COMMENTS 1
--- NOTE | 2016-09-10 15:20 | PN ---
Date/Time of Note Date/Time of Note DATE: 09/10/16 TIME: 15:17 Assessment/Plan VTE Prophylaxis VTE Prophylaxis Intervention: heparin Lines/Catheters IV [facility] (from [facility] Saline Lock Urinary Cath still in place: No Assessment/Plan Assessment/Plan 1. COPD exacerbation, on levaquin, neb/steroid, decrease SoluMedrol, add singulair, still cough with shortness of breath, no wheezing in lungs, more likely acute bronchitis, change antibiotics to zosyn 2. Essential hypertension. Blood pressure stable. increase Cozaar, 3. Hypothyroidism, stable. Continue Levoxyl. 4. DVT prophylaxis: heparin Subjective 24 Hr Interval Summary Free Text/Dictation not improving on cough and shortness of breath but no wheezing Exam/Review of Systems Vital Signs Vitals Vital Signs Date Time Temp Pulse Resp B/P Pulse Ox O2 Delivery O2 Flow Rate FiO2 09/10/16 15:13 2.0 09/10/16 14:45 72 18 95 Nasal Cannula 09/10/16 07:47 98.1 132/60 09/09/16 17:15 21 Intake and Output 09/09/16 09/09/16 09/10/16 15:00 23:00 07:00 Intake Total 720 ml 580 ml Balance 720 ml 580 ml Exam Constitutional: alert, oriented, well developed Psych: nl mood/affect, no complaints Head: atraumatic, normocephalic Eyes: EOMI, nl conjunctiva, nl lids ENMT: nl external ears & nose, nl lips & teeth, nl nasal mucosa & septum Neck: non-tender, supple Respiratory: clear to auscultation, normal air movement, No congested cough, No crackles/rales, No diminished breath sounds, No intercostal retraction, No labored breathing, No other, No respirations, No tactile fremitus, No wheezing Cardiovascular: nl pulses, regular rate and rhythm, No S3, No S4, No bruits, No diastolic murmur, No edema, No gallop, No irregular rhythm, No jugular venous distention (JVD), No murmurs/extra sounds, No other, No rub, No systolic murmur Gastrointestinal: nl liver, spleen, non-tender, soft, No ascites, No bowel sounds, No distended, No firm, No hepatomegaly, No mass , No other, No rebound or guarding, No splenomegaly, No surgical scars, No tender Musculoskeletal: nl extremities to inspection Extremities: normal pulses, No calf tenderness, No clubbing, No cyanosis, No edema, No other, No palpable cord, No pitting pedal edema, No tenderness Neurological: ENERGY OPERATIONS VICE PRESIDENT II-XII intact, nl mental status, nl speech, nl strength Skin: nl turgor, rash or lesions Lymph: nl lymph nodes Results Result Diagram: 09/10/1652509/10/16525 Results 24 hrs Laboratory Tests Test 09/10/16 05:26 Anion Gap 17 H Basophils # 0.0 Basophils % 0.0 Blood Morphology Comment Blood Urea Nitrogen 20 Calcium Level 9.1 Carbon Dioxide Level 29 Chloride Level 99 Creatinine 0.62 Eosinophils # 0.0 Eosinophils % 0.0 Glucose Level 138 Hematocrit 40.4 Hemoglobin 13.6 Lymphocytes # 1.0 Lymphocytes % 7.3 L Mean Corpuscular Hemoglobin 31.1 Mean Corpuscular Hemoglobin Concent 33.6 Mean Corpuscular Volume 92.5 Mean Platelet Volume 8.6 Monocytes # 0.8 Monocytes % 6.2 Neutrophils # 11.7 H Neutrophils % 86.5 H Nucleated Red Blood Cells # 0.0 Nucleated Red Blood Cells % 0.0 Platelet Count 249 Potassium Level 4.3 Red Blood Count 4.37 Red Cell Distribution Width 15.5 H Sodium Level 141 White Blood Count 13.5 #H Medications Medications Current Medications Ondansetron HCl (Zofran Inj) 4 mg Q6H PRN IV NAUSEA AND/OR VOMITING Last administered on 09/07/16 12:00; Admin Dose 4 MG; Start 09/06/16 at 23:30 Salmeterol Xinafoate/ Fluticasone (Advair 250/50 Diskus) 1 inh BID INH Last administered on 09/10/16 08:33; Admin Dose 1 INH; Start 09/06/16 at 23:30 Acetaminophen (Tylenol Tab) 650 mg Q6H PRN PO PAIN AND OR ELEVATED TEMP Last administered on 09/08/16 12:44; Admin Dose 650 MG; Start 09/06/16 at 23:30 Atorvastatin Calcium (Lipitor) 40 mg DAILY PO Last administered on 09/10/16 08 :33; Admin Dose 40 MG; Start 09/07/16 at 09:00 Calcium Carbonate (Oyster Shell Calcium) 1.25 gm BID PO Last administered on 08:32; Admin Dose 1.25 GM; Start 09/07/16 at 09:00 Guaifenesin/ Dextromethorphan (Robitussin Dm Liquid Cup) 5 ml Q4H PRN PO COUGH Last administered on 09/10/16 09:59; Admin Dose 5 ML; Start 09/07/16 at 00:00 Eye Lubricant (Refresh Plus) 1 drop BID BOTH EYES Last administered on 08:46; Admin Dose 1 DROP; Start 09/07/16 at 09:00 Morphine Sulfate (morphine) 1 mg Q4H PRN IV PAIN LEVEL 6-10 Last administered on 09/08/16 16:43; Admin Dose 1 MG; Start 09/07/16 at 12:00 Pantoprazole (Protonix Tab) 40 mg DAILY@06 PO Last administered on 09/10/16 05 :12; Admin Dose 40 MG; Start 09/08/16 at 06:00 Heparin Sodium (Porcine) (Heparin (5000 Units/0.5 ml)) 5,000 unit BID SC Last administered on 09/10/16 08:36; Admin Dose 5,000 UNIT; Start 09/07/16 at 21:00 Hydralazine HCl (Apresoline) 10 mg Q6H PRN IV ELEVATED BLOOD PRESSURE Last administered on 09/09/16 09:20; Admin Dose 10 MG; Start 09/09/16 at 01:30 Losartan Potassium (Cozaar) 100 mg DAILY PO Last administered on 09/10/16 08: 32; Admin Dose 100 MG; Start 09/10/16 at 09:00 Methylprednisolone Sodium Succinate (Solu-Medrol) 20 mg Q8H IV Last administered on 09/10/16 08:32; Admin Dose 20 MG; Start 09/09/16 at 17:00 Montelukast Sodium 10 mg 10 mg HS PO Last administered on 09/09/16 21:46; Admin Dose 10 MG; Start 09/09/16 at 21:00 Piperacillin Sod/ Tazobactam Sod (Zosyn 3.375gm/ 100 ml (Pmx)) 100 ml @ 200 mls /hr Q6 IVPB ; Start 09/10/16 at 18:00; Status KENAN BAKER MD Sep 10, 2016 15:20
[2016-09-10] MEDS: PIPER-TAZO 2.25 GM (PMX) 50 ML IVPB SCH ×2 (17:31→23:46)
[2016-09-10 19:28] VITALS: BP 127/66; RESP 18
[2016-09-10] MEDS: MONTELUKAST 10 MG TAB PO SCH (21:10)
[2016-09-11] MEDS: IPRATROPIUM (NEB) 0.5 MG/2.5 ML AMP HHN SCH ×4 (01:35→19:37)
[2016-09-11] MEDS: LEVALBUTEROL (NEB) 1.25 MG/0.5 ML AMP HHN SCH ×4 (01:35→19:38)
[2016-09-11] MEDS: GUAIFENESIN/DM 5ML CUP PO PRN ×2 (05:33→09:21)
[2016-09-11] MEDS: PIPER-TAZO 2.25 GM (PMX) 50 ML IVPB SCH ×3 (05:33→16:56)
[2016-09-11] MEDS: PANTOPRAZOLE (EC) 40 MG TAB PO SCH (05:36)
[2016-09-11] MEDS: LEVOTHYROXINE 25 MCG TAB PO SCH (05:37)
[2016-09-11 05:45] LABS: POTASSIUM 4.5 mmol/L (3.5-5.1)
[2016-09-11 05:47] LABS: CREATININE 0.67 mg/dl (0.44-1.00); HEMATOCRIT 41.6 % (37.0-47.0); HEMOGLOBIN 13.7 g/dl (12.0-16.0); LYMPHOCYTES # 1.2 10^3/ul (0.8-2.9); LYMPHOCYTES % 8.6 % (15.0-51.0); MEAN CORPUSCULAR HEMOGLOBIN 30.6 pg (29.0-33.0); MEAN CORPUSCULAR VOLUME 92.8 fl (82.0-101.0); MEAN PLATELET VOLUME 8.1 fl (7.4-10.4); MONOCYTE # 0.8 10^3/ul (0.3-0.9); MONOCYTES % 5.6 % (0.0-11.0); NEUTROPHIL # 12.4 10^3/ul (1.6-7.5); NEUTROPHILS % 85.8 % (39.0-77.0); PLATELET COUNT 250 10^3/UL (140-440); RED BLOOD COUNT 4.48 10^6/ul (4.20-5.40); RED CELL DISTRIBUTION WIDTH 15.5 % (11.5-14.5); UNCORRECTED WBC 14.5 10^3/ul (4.8-10.8); WHITE BLOOD COUNT 14.5 10^3/ul (4.8-10.8)
[2016-09-11 05:48] LABS: CALCIUM 8.7 mg/dl (8.4-10.2)
[2016-09-11 06:35] LABS: CONDITION 1; LH ANALYZER COMMENTS 1
[2016-09-11 07:38] VITALS: BP 149/74; RESP 18
[2016-09-11] MEDS: CARBOXYMETHYLCELLULOSE 0.5% 0.1 ML OPH BOTH EYES SCH ×2 (09:00→21:54)
[2016-09-11] MEDS: CALCIUM CARBONATE 1.25 GM TAB PO SCH ×2 (09:21→21:03)
[2016-09-11] MEDS: HEPARIN 5,000 UNIT/0.5 ML SYG SC SCH ×2 (09:21→21:03)
[2016-09-11] MEDS: METHYLPREDNISOLONE 40 MG INJ IV SCH ×2 (09:21→16:56)
[2016-09-11] MEDS: SALMETEROL/FLUTICASONE 250/50 INHA INH SCH ×2 (09:21→21:03)
[2016-09-11] MEDS: ATORVASTATIN 40 MG TAB PO SCH (09:22)
[2016-09-11] MEDS: LOSARTAN 50 MG TAB PO SCH (09:22)
--- NOTE | 2016-09-11 13:41 | PN ---
Date/Time of Note Date/Time of Note DATE: 09/11/16 TIME: 13:39 Assessment/Plan VTE Prophylaxis VTE Prophylaxis Intervention: heparin Lines/Catheters IV [facility] Type (from [facility]): Saline Lock Urinary Cath still in place: No Assessment/Plan Assessment/Plan 1. COPD exacerbation, on levaquin, neb/steroid, decrease SoluMedrol, add singulair, still cough with shortness of breath, no wheezing in lungs, more likely acute bronchitis, change antibiotics to zosyn, add flonase today 2. Essential hypertension. Blood pressure stable. increase Cozaar, 3. Hypothyroidism, stable. Continue Levoxyl. 4. DVT prophylaxis: heparin Subjective 24 Hr Interval Summary Free Text/Dictation still wheezing, cough and shortness of breath. States she has post nasal drainage Exam/Review of Systems Vital Signs Vitals Vital Signs Date Time Temp Pulse Resp B/P Pulse Ox O2 Delivery O2 Flow Rate FiO2 09/11/16 13:17 2.0 09/11/16 13:17 86 18 98 Nasal Cannula 09/11/16 07:38 98.1 149/74 09/09/16 17:15 21 Intake and Output 09/10/16 09/10/16 09/11/16 15:00 23:00 07:00 Intake Total 890 ml 100 ml Balance 890 ml 100 ml Exam Constitutional: alert, oriented, well developed Psych: nl mood/affect, no complaints Head: atraumatic, normocephalic Eyes: EOMI, PERRL, nl conjunctiva, nl lids ENMT: nl external ears & nose, nl lips & teeth, nl nasal mucosa & septum Neck: non-tender, supple Respiratory: clear to auscultation Cardiovascular: nl pulses, regular rate and rhythm, No S3, No S4, No bruits, No diastolic murmur, No edema, No gallop, No irregular rhythm, No jugular venous distention (JVD), No murmurs/extra sounds, No other, No rub, No systolic murmur Gastrointestinal: nl liver, spleen, soft, No ascites, No bowel sounds, No distended, No firm, No hepatomegaly, No mass , No other, No rebound or guarding, No splenomegaly, No surgical scars, No tender Musculoskeletal: nl extremities to inspection Extremities: normal pulses, No calf tenderness, No clubbing, No cyanosis, No edema, No other, No palpable cord, No pitting pedal edema, No tenderness Neurological: ER MANAGER II-XII intact, nl mental status, nl speech, nl strength Skin: nl turgor Lymph: nl lymph nodes Results Result Diagram: 09/11/1644209/11/16442 Results 24 hrs Laboratory Tests Test 09/11/16 04:43 Anion Gap 15 Basophils # 0.0 Basophils % 0.0 Blood Morphology Comment Blood Urea Nitrogen 21 H Calcium Level 8.7 Carbon Dioxide Level 30 Chloride Level 102 Creatinine 0.67 Eosinophils # 0.0 Eosinophils % 0.0 Glucose Level 149 Hematocrit 41.6 Hemoglobin 13.7 Lymphocytes # 1.2 Lymphocytes % 8.6 L Mean Corpuscular Hemoglobin 30.6 Mean Corpuscular Hemoglobin Concent 33.0 Mean Corpuscular Volume 92.8 Mean Platelet Volume 8.1 Monocytes # 0.8 Monocytes % 5.6 Neutrophils # 12.4 H Neutrophils % 85.8 H Nucleated Red Blood Cells # 0.0 Nucleated Red Blood Cells % 0.0 Platelet Count 250 Potassium Level 4.5 Red Blood Count 4.48 Red Cell Distribution Width 15.5 H Sodium Level 142 White Blood Count 14.5 H Medications Medications Current Medications Ondansetron HCl (Zofran Inj) 4 mg Q6H PRN IV NAUSEA AND/OR VOMITING Last administered on 09/07/16 12:00; Admin Dose 4 MG; Start 09/06/16 at 23:30 Salmeterol Xinafoate/ Fluticasone (Advair 250/50 Diskus) 1 inh BID INH Last administered on 09/11/16 09:21; Admin Dose 1 INH; Start 09/06/16 at 23:30 Acetaminophen (Tylenol Tab) 650 mg Q6H PRN PO PAIN AND OR ELEVATED TEMP Last administered on 09/08/16 12:44; Admin Dose 650 MG; Start 09/06/16 at 23:30 Atorvastatin Calcium (Lipitor) 40 mg DAILY PO Last administered on 09/11/16 09 :22; Admin Dose 40 MG; Start 09/07/16 at 09:00 Calcium Carbonate (Oyster Shell Calcium) 1.25 gm BID PO Last administered on 09:21; Admin Dose 1.25 GM; Start 09/07/16 at 09:00 Guaifenesin/ Dextromethorphan (Robitussin Dm Liquid Cup) 5 ml Q4H PRN PO COUGH Last administered on 09/11/16 09:21; Admin Dose 5 ML; Start 09/07/16 at 00:00 Eye Lubricant (Refresh Plus) 1 drop BID BOTH EYES Last administered on 08:46; Admin Dose 1 DROP; Start 09/07/16 at 09:00 Morphine Sulfate (morphine) 1 mg Q4H PRN IV PAIN LEVEL 6-10 Last administered on 09/08/16 16:43; Admin Dose 1 MG; Start 09/07/16 at 12:00 Pantoprazole (Protonix Tab) 40 mg DAILY@06 PO Last administered on 09/11/16 05 :36; Admin Dose 40 MG; Start 09/08/16 at 06:00 Heparin Sodium (Porcine) (Heparin (5000 Units/0.5 ml)) 5,000 unit BID SC Last administered on 09/11/16 09:21; Admin Dose 5,000 UNIT; Start 09/07/16 at 21:00 Hydralazine HCl (Apresoline) 10 mg Q6H PRN IV ELEVATED BLOOD PRESSURE Last administered on 09/09/16 09:20; Admin Dose 10 MG; Start 09/09/16 at 01:30 Losartan Potassium (Cozaar) 100 mg DAILY PO Last administered on 09/11/16 09: 22; Admin Dose 100 MG; Start 09/10/16 at 09:00 Methylprednisolone Sodium Succinate (Solu-Medrol) 20 mg Q8H IV Last administered on 09/11/16 09:21; Admin Dose 20 MG; Start 09/09/16 at 17:00 Montelukast Sodium 10 mg 10 mg HS PO Last administered on 09/10/16 21:10; Admin Dose 10 MG; Start 09/09/16 at 21:00 Piperacillin Sod/ Tazobactam Sod (Zosyn 2.25gm/ 50ml (Pmx)) 50 ml @ 100 mls/hr Q6 IVPB Last administered on 09/11/16 05:33; Admin Dose 100 MLS/HR; Start at 18:00 KENAN SANDERS MD Sep 11, 2016 13:41
[2016-09-11] MEDS: FLUTICASONE 0.05% 16 GM NAS SPRAY NASAL SCH ×2 (16:54→21:03)
[2016-09-11 20:00] VITALS: BP 139/65; RESP 18
[2016-09-11] MEDS: MONTELUKAST 10 MG TAB PO SCH (21:03)
[2016-09-12] MEDS: PIPER-TAZO 2.25 GM (PMX) 50 ML IVPB SCH ×3 (00:37→12:41)
[2016-09-12] MEDS: METHYLPREDNISOLONE 40 MG INJ IV SCH ×3 (00:37→17:27)
[2016-09-12] MEDS: LEVALBUTEROL (NEB) 1.25 MG/0.5 ML AMP HHN SCH ×4 (02:12→20:51)
[2016-09-12] MEDS: IPRATROPIUM (NEB) 0.5 MG/2.5 ML AMP HHN SCH ×4 (02:12→20:52)
[2016-09-12] MEDS: PANTOPRAZOLE (EC) 40 MG TAB PO SCH (05:37)
[2016-09-12] MEDS: LEVOTHYROXINE 25 MCG TAB PO SCH (05:39)
[2016-09-12 05:48] LABS: ADD SCAN DIFF NO
[2016-09-12 06:00] LABS: BASOPHILS % 0.1 % (0.0-2.0); HEMATOCRIT 40.2 % (37.0-47.0); HEMOGLOBIN 13.1 g/dl (12.0-16.0); LYMPHOCYTES # 1.1 10^3/ul (0.8-2.9); MEAN CORPUSCULAR HEMOGLOBIN 30.1 pg (29.0-33.0); MEAN CORPUSCULAR HGB CONC 32.6 g/dl (32.0-37.0); MEAN CORPUSCULAR VOLUME 92.4 fl (82.0-101.0); MEAN PLATELET VOLUME 9.7 fl (7.4-10.4); MONOCYTES % 6.3 % (0.0-11.0); NEUTROPHIL # 12.7 10^3/ul (1.6-7.5); NEUTROPHILS % 84.3 % (39.0-77.0); PLATELET COUNT 245 10^3/UL (140-415); RED BLOOD COUNT 4.35 10^6/ul (4.20-5.40); RED CELL DISTRIBUTION WIDTH 15.8 % (11.5-14.5); WHITE BLOOD COUNT 15.1 10^3/ul (4.8-10.8)
[2016-09-12 06:11] LABS: POTASSIUM 4.7 mmol/L (3.5-5.1)
[2016-09-12 06:13] LABS: CREATININE 0.72 mg/dl (0.44-1.00)
[2016-09-12 06:14] LABS: CALCIUM 8.4 mg/dl (8.4-10.2)
[2016-09-12 08:19] VITALS: BP 130/60; RESP 22
[2016-09-12] MEDS: SALMETEROL/FLUTICASONE 250/50 INHA INH SCH ×2 (09:12→20:38)
[2016-09-12] MEDS: HEPARIN 5,000 UNIT/0.5 ML SYG SC SCH ×2 (09:12→20:36)
[2016-09-12] MEDS: ATORVASTATIN 40 MG TAB PO SCH (09:13)
[2016-09-12] MEDS: GUAIFENESIN/DM 5ML CUP PO PRN ×2 (09:13→20:48)
[2016-09-12] MEDS: FLUTICASONE 0.05% 16 GM NAS SPRAY NASAL SCH ×2 (09:13→20:38)
[2016-09-12] MEDS: CARBOXYMETHYLCELLULOSE 0.5% 0.1 ML OPH BOTH EYES SCH ×2 (09:14→22:29)
[2016-09-12] MEDS: LOSARTAN 50 MG TAB PO SCH (09:14)
[2016-09-12] MEDS: CALCIUM CARBONATE 1.25 GM TAB PO SCH ×2 (09:14→20:37)
--- NOTE | 2016-09-12 16:08 | PN ---
Date/Time of Note Date/Time of Note DATE: 09/12/16 TIME: 16:06 Assessment/Plan VTE Prophylaxis VTE Prophylaxis Intervention: heparin Lines/Catheters IV Catheter Type (from [facility]rs): Peripheral IV Urinary Cath still in place: No Assessment/Plan Assessment/Plan 1. COPD exacerbation, on levaquin, neb/steroid, decrease SoluMedrol/singulair, better after adding flonase, home 1-2 days 2. Essential hypertension. Blood pressure stable. increase Cozaar, 3. Hypothyroidism, stable. Continue Levoxyl. 4. DVT prophylaxis: heparin Subjective 24 Hr Interval Summary Free Text/Dictation feels better, less cough Exam/Review of Systems Vital Signs Vitals Vital Signs Date Time Temp Pulse Resp B/P Pulse Ox O2 Delivery O2 Flow Rate FiO2 09/12/16 14:10 2.0 09/12/16 14:10 84 18 96 Nasal Cannula 09/12/16 08:19 98.3 130/60 09/09/16 17:15 21 Intake and Output 09/11/16 09/11/16 09/12/16 15:00 23:00 07:00 Intake Total 50 ml 770 ml 450 ml Balance 50 ml 770 ml 450 ml Exam Constitutional: alert, oriented, well developed Psych: nl mood/affect, no complaints Head: atraumatic, normocephalic Eyes: EOMI, nl conjunctiva, nl lids, nl sclera ENMT: nl external ears & nose, nl lips & teeth Neck: non-tender, supple Respiratory: wheezing Cardiovascular: nl pulses, regular rate and rhythm, No S3, No S4, No bruits, No diastolic murmur, No edema, No gallop, No irregular rhythm, No jugular venous distention (JVD), No murmurs/extra sounds, No other, No rub, No systolic murmur Gastrointestinal: nl liver, spleen, non-tender, soft, No ascites, No bowel sounds, No distended, No firm, No hepatomegaly, No mass , No other, No rebound or guarding, No splenomegaly, No surgical scars, No tender Musculoskeletal: nl extremities to inspection Neurological: LOAN REVIEW MANAGER II-XII intact, nl mental status, nl speech, nl strength Skin: nl turgor Lymph: nl lymph nodes Results Result Diagram: 09/12/16 0501 09/12/16 0506 Results 24 hrs Laboratory Tests Test 09/12/16 05:01 09/12/16 05:06 Basophils # 0.0 Basophils % 0.1 Eosinophils # 0.0 Eosinophils % 0.0 Hematocrit 40.2 Hemoglobin 13.1 Lymphocytes # 1.1 Lymphocytes % 7.0 L Mean Corpuscular Hemoglobin 30.1 Mean Corpuscular Hemoglobin Concent 32.6 Mean Corpuscular Volume 92.4 Mean Platelet Volume 9.7 Monocytes # 1.0 H Monocytes % 6.3 Neutrophils # 12.7 H Neutrophils % 84.3 H Nucleated Red Blood Cells # 0.0 Nucleated Red Blood Cells % 0.0 Platelet Count 245 Red Blood Count 4.35 Red Cell Distribution Width 15.8 H White Blood Count 15.1 H Anion Gap 15 Blood Urea Nitrogen 25 H Calcium Level 8.4 Carbon Dioxide Level 29 Chloride Level 102 Creatinine 0.72 Glucose Level 136 Potassium Level 4.7 Sodium Level 141 Medications Medications Current Medications Ondansetron HCl (Zofran Inj) 4 mg Q6H PRN IV NAUSEA AND/OR VOMITING Last administered on 09/07/16 12:00; Admin Dose 4 MG; Start 09/06/16 at 23:30 Salmeterol Xinafoate/ Fluticasone (Advair 250/50 Diskus) 1 inh BID INH Last administered on 09/12/16 09:12; Admin Dose 1 INH; Start 09/06/16 at 23:30 Acetaminophen (Tylenol Tab) 650 mg Q6H PRN PO PAIN AND OR ELEVATED TEMP Last administered on 09/08/16 12:44; Admin Dose 650 MG; Start 09/06/16 at 23:30 Atorvastatin Calcium (Lipitor) 40 mg DAILY PO Last administered on 09/12/16 09 :13; Admin Dose 40 MG; Start 09/07/16 at 09:00 Calcium Carbonate (Oyster Shell Calcium) 1.25 gm BID PO Last administered on 09:14; Admin Dose 1.25 GM; Start 09/07/16 at 09:00 Guaifenesin/ Dextromethorphan (Robitussin Dm Liquid Cup) 5 ml Q4H PRN PO COUGH Last administered on 09/12/16 09:13; Admin Dose 5 ML; Start 09/07/16 at 00:00 Eye Lubricant (Refresh Plus) 1 drop BID BOTH EYES Last administered on 09:14; Admin Dose 1 DROP; Start 09/07/16 at 09:00 Morphine Sulfate (morphine) 1 mg Q4H PRN IV PAIN LEVEL 6-10 Last administered on 09/08/16 16:43; Admin Dose 1 MG; Start 09/07/16 at 12:00 Pantoprazole (Protonix Tab) 40 mg DAILY@06 PO Last administered on 09/12/16 05 :37; Admin Dose 40 MG; Start 09/08/16 at 06:00 Heparin Sodium (Porcine) (Heparin (5000 Units/0.5 ml)) 5,000 unit BID SC Last administered on 09/12/16 09:12; Admin Dose 5,000 UNIT; Start 09/07/16 at 21:00 Hydralazine HCl (Apresoline) 10 mg Q6H PRN IV ELEVATED BLOOD PRESSURE Last administered on 09/09/16 09:20; Admin Dose 10 MG; Start 09/09/16 at 01:30 Losartan Potassium (Cozaar) 100 mg DAILY PO Last administered on 09/12/16 09: 14; Admin Dose 100 MG; Start 09/10/16 at 09:00 Methylprednisolone Sodium Succinate (Solu-Medrol) 20 mg Q8H IV Last administered on 09/12/16 09:15; Admin Dose 20 MG; Start 09/09/16 at 17:00 Montelukast Sodium 10 mg 10 mg HS PO Last administered on 09/11/16 21:03; Admin Dose 10 MG; Start 09/09/16 at 21:00 Piperacillin Sod/ Tazobactam Sod (Zosyn 2.25gm/ 50ml (Pmx)) 50 ml @ 100 mls/hr Q6 IVPB Last administered on 09/12/16 12:41; Admin Dose 100 MLS/HR; Start at 18:00 Fluticasone Propionate (Flonase 0.05% Nasal) 1 spray BID NASAL Last administered on 09/12/16 09:13; Admin Dose 1 SPRAY; Start 09/11/16 at 14:00 KEANN SANDERS MD Sep 12, 2016 16:08
[2016-09-12 20:19] VITALS: BP 134/65; RESP 18
[2016-09-12] MEDS: MONTELUKAST 10 MG TAB PO SCH (20:37)
[2016-09-13] MEDS: METHYLPREDNISOLONE 40 MG INJ IV SCH ×3 (01:43→18:08)
[2016-09-13] MEDS: IPRATROPIUM (NEB) 0.5 MG/2.5 ML AMP HHN SCH ×4 (03:09→20:42)
[2016-09-13] MEDS: LEVALBUTEROL (NEB) 1.25 MG/0.5 ML AMP HHN SCH ×4 (03:09→20:42)
[2016-09-13] MEDS: PANTOPRAZOLE (EC) 40 MG TAB PO SCH (05:51)
[2016-09-13] MEDS: LEVOFLOXACIN 500 MG TAB PO SCH (05:51)
[2016-09-13] MEDS: LEVOTHYROXINE 25 MCG TAB PO SCH (05:51)
[2016-09-13 07:49] VITALS: BP 142/67; RESP 20
[2016-09-13] MEDS: SALMETEROL/FLUTICASONE 250/50 INHA INH SCH ×2 (08:24→21:07)
[2016-09-13] MEDS: GUAIFENESIN/DM 5ML CUP PO PRN (08:24)
[2016-09-13] MEDS: FLUTICASONE 0.05% 16 GM NAS SPRAY NASAL SCH ×2 (08:24→21:07)
[2016-09-13] MEDS: CALCIUM CARBONATE 1.25 GM TAB PO SCH ×2 (08:24→21:06)
[2016-09-13] MEDS: ATORVASTATIN 40 MG TAB PO SCH (08:24)
[2016-09-13] MEDS: HEPARIN 5,000 UNIT/0.5 ML SYG SC SCH ×2 (08:29→21:11)
[2016-09-13] MEDS: morphine 2 MG INJ IV PRN (08:37)
[2016-09-13] MEDS: CARBOXYMETHYLCELLULOSE 0.5% 0.1 ML OPH BOTH EYES SCH ×2 (09:00→21:06)
--- NOTE | 2016-09-13 09:33 | PN ---
Date/Time of Note Date/Time of Note DATE: 09/13/16 TIME: 09:28 Assessment/Plan VTE Prophylaxis VTE Prophylaxis Intervention: heparin Lines/Catheters IV [facility] Peripheral IV Urinary Cath still in place: No Assessment/Plan Problems: (1) Acute respiratory failure Status: Acute Comment: The patient has a negative chest x-ray has negative cultures. Please note in the earlier notes and said that she had pyelonephritis there is no UA or urine culture I do not believe this is an accurate diagnosis. The question is raised as to what exactly is going on here. Going to go ahead and check a CT pulmonary angiogram to make sure that we have not gone past an important issue. The patient denies any known prior history of lung disease until she got sick roughly a month ago. Qualifiers: Respiratory failure complication: hypoxia Qualified Code: J96.01 - Acute respiratory failure with hypoxia (2) Acute bronchitis Status: Acute Comment: Again the patient's progress notes label her as having COPD with having quit smoking [address] pulmonary angiogram will have another look at the lungs to know whether or not she has significant lung disease in addition we will do bedside spirometry given that she is wheezing will go ahead and treat her with full aggressive bronchodilator therapy (3) Essential hypertension Status: Chronic Comment: Noted in control (4) Hyperlipidemia Status: Chronic Comment: Noted Qualifiers: Hyperlipidemia type: pure hypercholesterolemia Qualified Code: E78.00 - Pure hypercholesterolemia (5) Acquired hypothyroidism Status: Chronic Comment: We will go ahead and check her TSH and make sure were not underdosing this patient (6) Morbid obesity with BMI of 40.0-44.9, adult Status: Chronic Comment: Noted calorie restriction Subjective 24 Hr Interval Summary Free Text/Dictation [address] female appears somewhat younger than her stated age sitting in a chair wheezing Constitutional: no complaints (Denies fever chills or sweats) Respiratory: cough, shortness of breath, wheezing Cardiovascular: palpitations (Denies chest pain) Gastrointestinal: no complaints Genitourinary: no complaints Musculoskeletal: no complaints Exam/Review of Systems Vital Signs Vitals Vital Signs Date Time Temp Pulse Resp B/P Pulse Ox O2 Delivery O2 Flow Rate FiO2 09/13/16 08:39 80 18 96 Nasal Cannula 2.0 09/13/16 07:49 98.1 142/67 09/09/16 17:15 21 Intake and Output 09/12/16 09/12/16 09/13/16 15:00 23:00 07:00 Intake Total 50 ml 2060 ml 480 ml Balance 50 ml 2060 ml 480 ml Exam Constitutional: alert, oriented Respiratory: wheezing Cardiovascular: nl pulses, regular rate and rhythm Gastrointestinal: nl liver, spleen, non-tender, soft Results Result Diagram: 09/12/16 0501 09/12/16 0506 Medications Medications Current Medications Ondansetron HCl (Zofran Inj) 4 mg Q6H PRN IV NAUSEA AND/OR VOMITING Last administered on 09/07/16 12:00; Admin Dose 4 MG; Start 09/06/16 at 23:30 Salmeterol Xinafoate/ Fluticasone (Advair 250/50 Diskus) 1 inh BID INH Last administered on 09/13/16 08:24; Admin Dose 1 INH; Start 09/06/16 at 23:30 Acetaminophen (Tylenol Tab) 650 mg Q6H PRN PO PAIN AND OR ELEVATED TEMP Last administered on 09/08/16 12:44; Admin Dose 650 MG; Start 09/06/16 at 23:30 Atorvastatin Calcium (Lipitor) 40 mg DAILY PO Last administered on 09/13/16 08 :24; Admin Dose 40 MG; Start 09/07/16 at 09:00 Calcium Carbonate (Oyster Shell Calcium) 1.25 gm BID PO Last administered on 08:24; Admin Dose 1.25 GM; Start 09/07/16 at 09:00 Guaifenesin/ Dextromethorphan (Robitussin Dm Liquid Cup) 5 ml Q4H PRN PO COUGH Last administered on 09/13/16 08:24; Admin Dose 5 ML; Start 09/07/16 at 00:00 Eye Lubricant (Refresh Plus) 1 drop BID BOTH EYES Last administered on 22:29; Admin Dose 1 DROP; Start 09/07/16 at 09:00 Morphine Sulfate (morphine) 1 mg Q4H PRN IV PAIN LEVEL 6-10 Last administered on 09/13/16 08:37; Admin Dose 1 MG; Start 09/07/16 at 12:00 Pantoprazole (Protonix Tab) 40 mg DAILY@06 PO Last administered on 09/13/16 05 :51; Admin Dose 40 MG; Start 09/08/16 at 06:00 Heparin Sodium (Porcine) (Heparin (5000 Units/0.5 ml)) 5,000 unit BID SC Last administered on 09/13/16 08:29; Admin Dose 5,000 UNIT; Start 09/07/16 at 21:00 Hydralazine HCl (Apresoline) 10 mg Q6H PRN IV ELEVATED BLOOD PRESSURE Last administered on 09/09/16 09:20; Admin Dose 10 MG; Start 09/09/16 at 01:30 Losartan Potassium (Cozaar) 100 mg DAILY PO Last administered on 09/12/16 09: 14; Admin Dose 100 MG; Start 09/10/16 at 09:00 Methylprednisolone Sodium Succinate (Solu-Medrol) 20 mg Q8H IV Last administered on 09/13/16 01:43; Admin Dose 20 MG; Start 09/09/16 at 17:00 Montelukast Sodium (Singulair) 10 mg HS PO Last administered on 09/12/16 20:37 ; Admin Dose 10 MG; Start 09/09/16 at 21:00 Fluticasone Propionate (Flonase 0.05% Nasal) 1 spray BID NASAL Last administered on 09/13/16 08:24; Admin Dose 1 SPRAY; Start 09/11/16 at 14:00 Levofloxacin (Levaquin) 500 mg DAILY@06 PO Last administered on 09/13/16 05:51 ; Admin Dose 500 MG; Start 09/13/16 at 06:00 EBONY LOPEZ MD Sep 13, 2016 09:33
[2016-09-13] MEDS: LOSARTAN 50 MG TAB PO SCH (10:37)
[2016-09-13] MEDS: TIOTROPIUM 18 MCG CAPSULE INHA DEV INH SCH (10:43)
[2016-09-13] MEDS: AZITHROMYCIN 250 MG TAB PO SCH (10:43)
[2016-09-13] MEDS ORDERED: SOD CHLORIDE 0.9% 100 ML ONE (13:47)
--- NOTE | 2016-09-13 14:34 | RADRPT ---
PROCEDURE: CTA Chest - Pulmonary embolism protocol with 3D reconstructions. CLINICAL INDICATION: Shortness of breath. TECHNIQUE: Intravenous contrast: 100 cc of Omnipaque 300 Post-processing 3D MIP reconstructions were performed. Radiation dose: CTDIvol = 28.2, 13.3 mGy; total DLP = 484 mGy-cm. One or more of the following dose reduction techniques were used: - Automated exposure control. - Adjustment of the mA and/or kV according to patient size. - Use of iterative reconstruction technique. COMPARISON: None. FINDINGS: Satisfactory evaluation of the pulmonary arteries demonstrate no filling defect to the level of the segmental branches. No aortic dissection or aneurysm. There is mild lower lobe predominant airway ectasia. No focal consolidation or pleural effusions. There are scattered bands of pleural parenchymal scarring. No significant interstitial lung disease . No suspicious pulmonary nodule or mass. No mediastinal or hilar lymphadenopathy. Borderline to mild cardiomegaly without pericardial effusion. Upper abdomen reveals no significant abnormality. No suspicious osseous lesion. IMPRESSION: 1. Technically satisfactory CT pulmonary angiogram without evidence of pulmonary thromboembolic dis ease to the segmental arterial level. 2. No focal consolidation/acute infiltrate, lymphadenopathy, or mass. 3. Mild diffuse airway ectasia reflecting post inflammatory or inflammatory airway changes, albeit nonspecific. RPTAT: [facility] .Randolph Dugan MD, Date Time Electronically viewed and signed by .Randolph Dugan MD, on 09/13/2016 14:34 .C/
[2016-09-13] MEDS: MONTELUKAST 10 MG TAB PO SCH (21:06)
[2016-09-13 21:08] VITALS: BP 128/68; RESP 20
[2016-09-14] MEDS: METHYLPREDNISOLONE 40 MG INJ IV SCH ×2 (01:56→08:42)
[2016-09-14] MEDS: IPRATROPIUM (NEB) 0.5 MG/2.5 ML AMP HHN SCH ×2 (02:00→08:00)
[2016-09-14] MEDS: LEVALBUTEROL (NEB) 1.25 MG/0.5 ML AMP HHN SCH ×2 (02:00→08:00)
[2016-09-14 05:29] LABS: ADD SCAN DIFF NO
[2016-09-14 05:36] LABS: BASOPHIL # 0.1 10^3/ul (0.0-0.1); BASOPHILS % 0.5 % (0.0-2.0); HEMATOCRIT 41.5 % (37.0-47.0); HEMOGLOBIN 13.7 g/dl (12.0-16.0); LYMPHOCYTES % 6.7 % (15.0-51.0); MEAN CORPUSCULAR HEMOGLOBIN 30.3 pg (29.0-33.0); MEAN CORPUSCULAR VOLUME 91.8 fl (82.0-101.0); MEAN PLATELET VOLUME 9.7 fl (7.4-10.4); MONOCYTE # 0.7 10^3/ul (0.3-0.9); MONOCYTES % 4.4 % (0.0-11.0); NEUTROPHILS % 84.4 % (39.0-77.0); PLATELET COUNT 234 10^3/UL (140-415); RED BLOOD COUNT 4.52 10^6/ul (4.20-5.40); RED CELL DISTRIBUTION WIDTH 15.9 % (11.5-14.5); WHITE BLOOD COUNT 15.4 10^3/ul (4.8-10.8)
[2016-09-14] MEDS: PANTOPRAZOLE (EC) 40 MG TAB PO SCH (05:50)
[2016-09-14] MEDS: LEVOFLOXACIN 500 MG TAB PO SCH (05:50)
[2016-09-14] MEDS: LEVOTHYROXINE 25 MCG TAB PO SCH (05:50)
[2016-09-14 05:51] LABS: POTASSIUM 4.7 mmol/L (3.5-5.1)
[2016-09-14 05:54] LABS: CREATININE 0.64 mg/dl (0.44-1.00)
[2016-09-14 05:55] LABS: CALCIUM 8.6 mg/dl (8.4-10.2)
[2016-09-14] MEDS: CALCIUM CARBONATE 1.25 GM TAB PO SCH (08:42)
[2016-09-14] MEDS: HEPARIN 5,000 UNIT/0.5 ML SYG SC SCH (08:42)
[2016-09-14] MEDS: AZITHROMYCIN 250 MG TAB PO SCH (08:43)
[2016-09-14] MEDS: CARBOXYMETHYLCELLULOSE 0.5% 0.1 ML OPH BOTH EYES SCH (08:43)
[2016-09-14] MEDS: ATORVASTATIN 40 MG TAB PO SCH (08:43)
[2016-09-14] MEDS: TIOTROPIUM 18 MCG CAPSULE INHA DEV INH SCH (08:44)
[2016-09-14] MEDS: LOSARTAN 50 MG TAB PO SCH (08:44)
[2016-09-14] MEDS: SALMETEROL/FLUTICASONE 250/50 INHA INH SCH (08:45)
[2016-09-14] MEDS: FLUTICASONE 0.05% 16 GM NAS SPRAY NASAL SCH (08:45)
[2016-09-14 08:50] VITALS: BP 136/67; RESP 20
--- NOTE | 2016-09-14 10:08 | PDOCDIS ---
Discharge Instructions DIAGNOSIS Discharge Diagnosis: Acute bronchitis; obesity; hypertension; CONDITION Patient Condition: Fair HOME CARE INSTRUCTIONS: Special Diet: regular, reduced calorie ACTIVITY: Activity Restrictions: No Restrictions Do not operate [employer] Tool FOLLOW UP/APPOINTMENTS Appointments With primary care physician in 1 week. EBONY LOPEZ MD Sep 14, 2016 10:08
[2016-09-14] MEDS ORDERED: MONT10TA24 PO (10:11)
[2016-09-14] MEDS ORDERED: ADV25050 INH (10:11)
[2016-09-14] MEDS ORDERED: TIOT18CA INH (10:11)
[2016-09-14] MEDS ORDERED: LOSA50TA6 PO (10:11)
[2016-09-14] MEDS ORDERED: FLUT16SP17 NASAL (10:11)
[2016-09-14] MEDS ORDERED: LEVO500T72 PO (10:11)
[2016-09-14] MEDS ORDERED: PRED20TA PO (10:11)
--- NOTE | 2016-09-14 10:14 | DS ---
Date/Time of Note Date/Time of Note DATE: 09/14/16 TIME: 10:12 Discharge Summary Admission/Discharge Info Admit Date/Time Sep 06, 2016 at 20:31 Discharge Date/Time 09/14/2016 Final Diagnosis Bronchitis with respiratory failure and asthmatic bronchitis; morbid obesity; hypertension; hyperlipidemia; hypothyroidism Patient Condition: Fair Procedures CT pulmonary angiogram (negative) Hx of Present Illness This is a 71 yo female with hx of HTN, hypothyroidism and pyelonephritis who walked-in to ED complaining of SOB and cough of 4 days duration. Cough has been dry. Denied chest pain, fever, chills nausea or vomiting. In ED, O2sat was 94% on room air and was slightly tachycardic with HR of 94. Basic labs were WNL and CXR showed mild left basilar atelectasis.. She received 125mg of solumedrol and repeated breathing treatments with duonebs, but symptoms persisted even though there was improvement. . Hospital Course 71-year-old female with significant obesity. She was brought into the hospital and treated aggressively with steroids inhaled bronchodilators. Her respiratory failure is rather significant and she slowly resolved. She is now improving very nicely in the last 24 hours and stable for discharge. Rehabilitation potential is fair to good she has no known communicable diseases she is not hazard to herself or others she is competent for medical decision-making. She will follow-up with her primary care physician within 1 week of discharge. Home Meds Active Scripts Prednisone* (Prednisone*) 20 Mg Tab, 20 MG PO DAILY for 10 Days, TAB Prov:EBONY LOPEZ MD 09/14/16 Tiotropium [place]* (Spiriva*) 18 Mcg Cap.w.dev, 1 INH INH DAILY for 30 Days Prov:EBONY LOPEZ MD 09/14/16 Salmeterol Xinaf/Fluticasone* (Advair*) 250-50 Diskus Inhaler, 1 INH INH BID for 30 Days Prov:EBONY LOPEZ MD 09/14/16 Montelukast Sodium* (Montelukast Sodium*) 10 Mg Tablet, 10 MG PO HS for 30 Days , TAB Prov:EBONY LOPEZ MD 09/14/16 Losartan Potassium* (Losartan Potassium*) 50 Mg Tablet, 100 MG PO DAILY for 30 Days, TAB 1 Refill Prov:EBONY LOPEZ MD 09/14/16 Levofloxacin* (Levaquin*) 500 Mg Tablet, 500 MG PO DAILY@06 for 7 Days, TAB Prov:EBONY LOPEZ MD 09/14/16 Fluticasone Propionate* (Fluticasone Propionate* Nasal) 50 Mcg/[place] - 16 Gm [place].susp, 1 SPRAY NASAL BID for 30 Days Prov:EBONY LOPEZ MD 09/14/16 Reported Medications Guaifenesin-Dextromethorphan* (Robitussin* DM) 100MG/10MG/5ML Syrup, 5 ML PO Q4H Y for COUGH, ML 09/06/16 Dextran 70/Hypromellose/Pf (Tears Naturale Free Drops) 1 Each Droperette, 1 EACH OP BID 09/06/16 Azithromycin* (Azithromycin*) 250 Mg Tablet, 500 MG PO DAILY, #1 TAB 09/06/16 Losartan Potassium* (Losartan Potassium*) 50 Mg Tablet, 50 MG PO DAILY, TAB 09/06/16 Calcium Carbonate ([id number]) 1 Tab Tablet, 1 TAB PO BID, TAB 10/02/15 Atorvastatin* (Atorvastatin*) 40 Mg Tablet, 40 MG PO DAILY, #30 TAB 10/02/15 Levothyroxine Sodium* (Levothyroxine Sodium*) 25 Mcg Tablet, 25 MCG PO BEFORE BREAKFAST, #30 TAB 10/02/15 Pending Labs Laboratory Tests Test 09/13/16 11:57 09/14/16 04:40 Thyroid Stimulating Hormone (TSH) 0.957MIU/L (0.465-4.680) Anion Gap 14 (8-16) Basophils # 0.110^3/ul (0.0-0.1) Basophils % 0.5% (0.0-2.0) Blood Urea Nitrogen 23mg/dl (7-20) Calcium Level 8.6mg/dl (8.4-10.2) Carbon Dioxide Level 29mmol/L (21-31) Chloride Level 100mmol/L (97-110) Creatinine 0.64mg/dl (0.44-1.00) Eosinophils # 0.010^3/ul (0.0-0.5) Eosinophils % 0.0% (0.0-7.0) Glucose Level 135mg/dl (70-220) Hematocrit 41.5% (37.0-47.0) Hemoglobin 13.7g/dl (12.0-16.0) Lymphocytes # 1.010^3/ul (0.8-2.9) Lymphocytes % 6.7% (15.0-51.0) Mean Corpuscular Hemoglobin 30.3pg (29.0-33.0) Mean Corpuscular Hemoglobin Concent 33.0g/dl (32.0-37.0) Mean Corpuscular Volume 91.8fl (82.0-101.0) Mean Platelet Volume 9.7fl (7.4-10.4) Monocytes # 0.710^3/ul (0.3-0.9) Monocytes % 4.4% (0.0-11.0) Neutrophils # 13.010^3/ul (1.6-7.5) Neutrophils % 84.4% (39.0-77.0) Nucleated Red Blood Cells # 0.010^3/ul (0.0-0.0) Nucleated Red Blood Cells % 0.0/100WBC (0.0-0.0) Platelet Count 04583^3/UL (140-415) Potassium Level 4.7mmol/L (3.5-5.1) Red Blood Count 4.5210^6/ul (4.20-5.40) Red Cell Distribution Width 15.9% (11.5-14.5) Sodium Level 138mmol/L (135-144) White Blood Count 15.410^3/ul (4.8-10.8) EBONY LOPEZ MD Sep 14, 2016 10:14
== END 2016-09-14 14:25 | disposition home or self-care (01) | DRG 189 ==
LOC: E/R 15:45 → MS4 20:31 → OBG 09-09 00:26 → PP2 09-10 10:15
PROVIDERS: ADMIT Internal Medicine; ATTEND Internal Medicine
DX: J96.01 Acute respiratory failure with hypoxia (principal); J44.0 Chronic obstructive pulmonary disease with (acute) lower respiratory infection; J44.1 Chronic obstructive pulmonary disease with (acute) exacerbation; Z68.41 Body mass index [BMI] 40.0-44.9, adult; J20.9 Acute bronchitis, unspecified; I10 Essential (primary) hypertension; E66.9 Obesity, unspecified; E03.9 Hypothyroidism, unspecified; Z96.653 Presence of artificial knee joint, bilateral; E78.5 Hyperlipidemia, unspecified
CPT/HCPCS: 71010; 71275; 80048; 84443; 84484; 85025; 87400; 93005; 94640; 94644; 94645; 94664; 96374; 96375; 97162; J0360; J1885; J1956; J2270; J2405; J2543; J2920; J2930

== ENCOUNTER 2016-10-23 11:06 | Emergency (ER) | payer SELFPAY ==
[~2016-10-23] VITALS: Wt 82.0 kg
[~2016-10-23 11:06] MED LIST changes: +ADV25050 INH; +AZIT250T6 PO; -CEPH500C PO; +DEXT1DRO OP; +FLUT16SP17 NASAL; +LEVO500T72 PO; -LOSA25TA5 PO; +LOSA50TA6 PO; +MONT10TA24 PO; +PRED20TA PO; +TIOT18CA INH; +UDROBDM PO
--- NOTE | 2016-10-23 13:35 | RADRPT ---
PROCEDURE: XR Chest. CLINICAL INDICATION: Cough. TECHNIQUE: Single frontal view of the chest was obtained COMPARISON: Chest x-ray 09/06/2016. FINDINGS: The soft tissues are normal. There are osteophytes in the thoracic spine. The heart, cardiomediast inal silhouette and hilar structures are normal. The pulmonary vasculature is normal. There is ather osclerotic change in the ectatic left-sided aorta. The lungs are clear. Costophrenic angles are becca ar. There is a plate-like density in the left costophrenic angle which may be the result of scarrin g or atelectasis. IMPRESSION: 1. There is no evidence of active cardiopulmonary disease. 2. Plate-like density lateral to the left heart border consistent with parenchymal scarring or atel ectasis. RPTAT:AAJJ Physician Chilo Date Time Electronically viewed and signed by Physician Chilo on 10/23/2016 13:34 MATTHEW/
[2016-10-23] MEDS ORDERED: GUAI118L22 PO (13:38)
[2016-10-23] MEDS ORDERED: AZIT250T94 PO (13:38)
--- NOTE | 2016-10-23 13:48 | ERD ---
ER Documentation Chief Complaint Date/Time DATE: 10/23/16 TIME: 13:46 Chief Complaint COUGH WITH THROAT PAIN X 3 DAYS HPI 71-year-old female presents with cough for approximately a week, worse over the last 3 days keeping her up at nighttime. She states that she has had a dry cough, no vomiting, no diarrhea. She denies chest pain or shortness of breath. ROS All systems reviewed and are negative except as per history of present illness. Medications Home Meds Active Scripts Guaifenesin/Codeine Phosphate (CHERATUSSIN AC SYRUP) 118 Ml Liquid, 5 ML PO Q4H Y for COUGH, #118 ML Prov:MILLY MCCARTHY PA-C 10/23/16 Azithromycin* (Zithromax*) 250 Mg Tablet, 250 MG PO .ZPACK DIRECTED, #6 TAB TAKE 500 MG (2 TABS) THE FIRST DAY THEN 250 MG (1 TAB) DAYS 2-5 Prov:MILLY MCCARTHY PA-C 10/23/16 Prednisone* (Prednisone*) 20 Mg Tab, 20 MG PO DAILY for 10 Days, TAB Prov:EBONY LOPEZ MD 09/14/16 Tiotropium [place]* (Spiriva*) 18 Mcg Cap.w.dev, 1 INH INH DAILY for 30 Days Prov:EBONY LOPEZ MD 09/14/16 Salmeterol Xinaf/Fluticasone* (Advair*) 250-50 Diskus Inhaler, 1 INH INH BID for 30 Days Prov:EBONY LOPEZ MD 09/14/16 Montelukast Sodium* (Montelukast Sodium*) 10 Mg Tablet, 10 MG PO HS for 30 Days , TAB Prov:EBONY LOPEZ MD 09/14/16 Losartan Potassium* (Losartan Potassium*) 50 Mg Tablet, 100 MG PO DAILY for 30 Days, TAB 1 Refill Prov:EBONY LOPEZ MD 09/14/16 Levofloxacin* (Levaquin*) 500 Mg Tablet, 500 MG PO DAILY@06 for 7 Days, TAB Prov:EBONY LOPEZ MD 09/14/16 Fluticasone Propionate* (Fluticasone Propionate* Nasal) 50 Mcg/[place] - 16 Gm [place].susp, 1 SPRAY NASAL BID for 30 Days Prov:EBONY LOPEZ MD 09/14/16 Reported Medications Guaifenesin-Dextromethorphan* (Robitussin* DM) 100MG/10MG/5ML Syrup, 5 ML PO Q4H Y for COUGH, ML 09/06/16 Dextran 70/Hypromellose/Pf (Tears Naturale Free Drops) 1 Each Droperette, 1 EACH OP BID 09/06/16 Azithromycin* (Azithromycin*) 250 Mg Tablet, 500 MG PO DAILY, #1 TAB 09/06/16 Calcium Carbonate ([id number]) 1 Tab Tablet, 1 TAB PO BID, TAB 10/02/15 Atorvastatin* (Atorvastatin*) 40 Mg Tablet, 40 MG PO DAILY, #30 TAB 10/02/15 Levothyroxine Sodium* (Levothyroxine Sodium*) 25 Mcg Tablet, 25 MCG PO BEFORE BREAKFAST, #30 TAB 10/02/15 Allergies Allergies: Coded Allergies: No Known Allergy (Unverified , 09/06/16) PMhx/Soc History of Surgery: Yes ( X3,CHOLECYSTECTOMY,AGNES KNEE REPLACEMENT) Anesthesia Reaction: No Hx Neurological Disorder: No Hx Respiratory Disorders: No Hx Cardiac Disorders: Yes (HTN, HDL) Hx Psychiatric Problems: No Hx Miscellaneous Medical Probl: Yes (THYROID) Hx Alcohol Use: No Hx Substance Use: No Hx Tobacco Use: No Smoking Status: Never smoker Physical Exam Vitals Vital Signs Date Time Temp Pulse Resp B/P Pulse Ox O2 Delivery O2 Flow Rate FiO2 10/23/16 11:14 99.0 99 16 184/71 99 Physical Exam General: Well-developed, well-nourished. The patient appears in no acute distress. HEENT: Head is normocephalic, atraumatic. No scleral icterus. Pupils are equal , round, and reactive. Oral mucous membranes are moist. No pharyngeal erythema. Neck: Supple. Nontender. Lungs: Clear to auscultation. Normal air movement. Heart: Regular rate and rhythm. S1 and S2 are normal. No murmurs, gallops, or rubs. Abdomen: Soft, nontender, nondistended. Bowel sounds are normoactive. Extremities: No clubbing or cyanosis. Normal pulses. Moving extremities x 4. No weakness. Neurologic: Alert and oriented 3. No focal deficits. Skin: Normal turgor. No rash or lesions. Results 24 hrs PROCEDURE: XR Chest. CLINICAL INDICATION: Cough. TECHNIQUE: Single frontal view of the chest was obtained COMPARISON: Chest x-ray 09/06/2016. FINDINGS: The soft tissues are normal. There are osteophytes in the thoracic spine. The heart, cardiomediastinal silhouette and hilar structures are normal. The pulmonary vasculature is normal. There is atherosclerotic change in the ectatic left-sided aorta. The lungs are clear. Costophrenic angles are clear. There is a plate-like density in the left costophrenic angle which may be the result of scarring or atelectasis. IMPRESSION: 1. There is no evidence of active cardiopulmonary disease. 2. Plate-like density lateral to the left heart border consistent with parenchymal scarring or atelectasis. RPTAT:AAJJ Physician Chilo Date Time Electronically viewed and signed by Javan Strong Physician on 10/23/2016 13:34 Procedures/MDM The patient is a 71-year-old female who comes in with an acute upper respiratory infection, versus acute bronchitis. The patient has a differential diagnosis of a viral upper respiratory infection, bacterial upper respiratory infection, bronchitis, pneumonia, pharyngitis, laryngitis, epiglottitis, croup, pneumonia. Patient has a normal pulmonary examination, clear breath sounds, normal pulse oximetry, with no corrective measures needed at this time. Fluids, rest, antipyretics were encouraged. Departure Diagnosis: Primary Impression: Cough Condition: Good Patient Instructions: Bronchitis, Antiobiotic Treatment (Adult) Additional Instructions: Llame al doctor MAANA y robert rj SUNITA PARA DENTRO DE 1-2 MAJOR.Dgale a la secretaria que nosotros le instruimos hacer esta sunita.Avise o llame si perdue condicin se empeora antes de la sunita. Regresa aqui si peor o no mejor. MILLY MCCARTHY PA-C Oct 23, 2016 13:48
== END 2016-10-23 14:00 | disposition home or self-care (01) ==
LOC: FTE 11:06
DX: R05 Cough (principal); I10 Essential (primary) hypertension; E03.9 Hypothyroidism, unspecified; Z96.653 Presence of artificial knee joint, bilateral
CPT/HCPCS: 71010

== ENCOUNTER 2017-04-29 20:06 | Emergency (ER) | payer MEDICAID ==
[~2017-04-29] VITALS: Ht 147.3 cm; Wt 93.0 kg
[~2017-04-29 20:06] MED LIST changes: +AZIT250T94 PO; +GUAI118L22 PO
[2017-04-29 20:41] VITALS: Ht 147.3 cm; Wt 93.0 kg
[2017-04-29] MEDS ORDERED: KETOROLAC 30 MG INJ IM STA (23:10)
--- NOTE | 2017-04-29 23:59 | RADRPT ---
PROCEDURE: X-ray lumbar spine CLINICAL INDICATION: Back pain with radicular symptoms. TECHNIQUE: 3 views of the lumbar spine. COMPARISON: None FINDINGS: Anterior endplate osteophytes seen in the lower thoracic and upper lumbar spines. Disc space narrowi ng is seen at the T12-L1 level. Otherwise, no disc space narrowing is otherwise identified in the sabrina mbar spine. Mild to moderate posterior facet degenerative changes seen at the L3-S1 levels, greater at the L5-S1 level. There is mild grade 1 anterolisthesis of L5 on S1, likely secondary to chronic p osterior facet degenerative changes. There is no evident acute fracture or dislocation. Soft tissues unremarkable. IMPRESSION: Mild to moderate degenerative changes in the lower lumbar spine, without acute fracture. RPTAT: [facility] Physician [place] Date Time Electronically viewed and signed by Physician [place] on 04/29/2017 23:59 RS/
--- NOTE | 2017-04-30 00:13 | ERD ---
ER Documentation Chief Complaint Date/Time DATE: 04/30/17 TIME: 00:01 Chief Complaint C/O LOWER BACK/BUTTOCK PAIN X2 DAYS UNABLE TO SLEEP. DENIES FALL HPI This is a 72-year-old female who presents the emergency department today complaining of some low back pain and left buttocks pain that goes down into her leg for the past 2 days. States it hurts when she walks. She has a history of arthritis in multiple joints. Denies any dysuria, fevers or chills, loss of bowel or bladder control. ROS All systems reviewed and are negative except as per history of present illness. Medications Home Meds Active Scripts Tramadol HCl (Tramadol HCl) 50 Mg Tablet, 50 MG PO Q4 Y for PAIN, #20 TAB Prov:JOSELUIS DELGADO PA-C 04/30/17 Guaifenesin/Codeine Phosphate (CHERATUSSIN AC SYRUP) 118 Ml Liquid, 5 ML PO Q4H Y for COUGH, #118 ML Prov:MILLY MCCARTHY PA-C 10/23/16 Azithromycin* (Zithromax*) 250 Mg Tablet, 250 MG PO .ZPACK DIRECTED, #6 TAB TAKE 500 MG (2 TABS) THE FIRST DAY THEN 250 MG (1 TAB) DAYS 2-5 Prov:MILLY MCCARTHY PA-C 10/23/16 Prednisone* (Prednisone*) 20 Mg Tab, 20 MG PO DAILY for 10 Days, TAB Prov:EBONY LOPEZ MD 09/14/16 Tiotropium [place]* (Spiriva*) 18 Mcg Cap.w.dev, 1 INH INH DAILY for 30 Days Prov:EBONY LOPEZ MD 09/14/16 Salmeterol Xinaf/Fluticasone* (Advair*) 250-50 Diskus Inhaler, 1 INH INH BID for 30 Days Prov:EBONY LOPEZ MD 09/14/16 Montelukast Sodium* (Montelukast Sodium*) 10 Mg Tablet, 10 MG PO HS for 30 Days , TAB Prov:EBONY LOPEZ MD 09/14/16 Losartan Potassium* (Losartan Potassium*) 50 Mg Tablet, 100 MG PO DAILY for 30 Days, TAB 1 Refill Prov:EBONY LOPEZ MD 09/14/16 Levofloxacin* (Levaquin*) 500 Mg Tablet, 500 MG PO DAILY@06 for 7 Days, TAB Prov:EBONY LOPEZ MD 09/14/16 Fluticasone Propionate* (Fluticasone Propionate* Nasal) 50 Mcg/[place] - 16 Gm [place].susp, 1 SPRAY NASAL BID for 30 Days Prov:EBONY LOPEZ MD 09/14/16 Reported Medications Guaifenesin-Dextromethorphan* (Robitussin* DM) 100MG/10MG/5ML Syrup, 5 ML PO Q4H Y for COUGH, ML 09/06/16 Dextran 70/Hypromellose/Pf (Tears Naturale Free Drops) 1 Each Droperette, 1 EACH OP BID 09/06/16 Azithromycin* (Azithromycin*) 250 Mg Tablet, 500 MG PO DAILY, #1 TAB 09/06/16 Calcium Carbonate ([id number]-474) 1 Tab Tablet, 1 TAB PO BID, TAB 10/02/15 Atorvastatin* (Atorvastatin*) 40 Mg Tablet, 40 MG PO DAILY, #30 TAB 10/02/15 Levothyroxine Sodium* (Levothyroxine Sodium*) 25 Mcg Tablet, 25 MCG PO BEFORE BREAKFAST, #30 TAB 10/02/15 Allergies Allergies: Coded Allergies: No Known Allergy (Unverified , 04/29/17) PMhx/Soc History of Surgery: Yes ( X3,CHOLECYSTECTOMY,AGNES KNEE REPLACEMENT) Anesthesia Reaction: No Hx Neurological Disorder: No Hx Respiratory Disorders: No Hx Cardiac Disorders: Yes (HTN, HDL) Hx Psychiatric Problems: No Hx Miscellaneous Medical Probl: Yes (THYROID) Hx Alcohol Use: No Hx Substance Use: No Hx Tobacco Use: No Smoking Status: Never smoker Physical Exam Vitals Vital Signs Date Time Temp Pulse Resp B/P Pulse Ox O2 Delivery O2 Flow Rate FiO2 04/29/17 20:41 98.3 79 20 179/83 97 Physical Exam Const: obese, NAD Head: Atraumatic Eyes: Normal Conjunctiva ENT: Normal External Ears, Nose and Mouth. Neck: Full range of motion..~ No meningismus. Resp: Clear to auscultation bilaterally Cardio: Regular rate and rhythm, no murmurs Abd: Soft, non tender, non distended. Normal bowel sounds Skin: No petechiae or rashes Back: Lumbar/sacral spine with midline tenderness. Left gluteal pain Ext: No cyanosis or edema. Neur: Awake and alert Psych: Normal Mood and Affect Results 24 hrs Laboratory Tests Test 04/29/17 00:00 Urine Color YELLOW Urine Clarity SLIGHTLY CLOUDY Urine pH 5.0 Urine Specific [place] 1.025 Urine Ketones NEGATIVEmg/dL Urine Nitrite NEGATIVEmg/dL Urine Bilirubin NEGATIVEmg/dL Urine Urobilinogen NEGATIVEmg/dL Urine Leukocyte Esterase TRACELeu/ul Urine Microscopic RBC 17/HPF Urine Microscopic WBC 2/HPF Urine Squamous Epithelial Cells FEW/HPF Urine Bacteria FEW/HPF Urine Mucus FEW/HPF Urine Hemoglobin 2+mg/dL Urine Glucose NEGATIVEmg/dL Urine Total Protein NEGATIVEmg/dl Current Medications Medications (Trade) Dose Ordered Sig/Juju Route PRN Reason Start Time Stop Time Status Last Admin Dose Admin Ketorolac Tromethamine (Toradol) 30 mg ONCE STAT IM 04/29/17 23:10 04/29/17 23:12 DC 04/29/17 23:56 DIAGNOSTIC IMAGING REPORT Patient: STEPHANIE MENJIVAR : 1945 Age: 72 Sex: F MR #: [id number] DOS: 04/29/17 0000 Ordering MD: JOSELUIS DELGADO PA-C Location: [facility] Room/Bed: PROCEDURE: X-ray lumbar spine CLINICAL INDICATION: Back pain with radicular symptoms. TECHNIQUE: 3 views of the lumbar spine. COMPARISON: None FINDINGS: Anterior endplate osteophytes seen in the lower thoracic and upper lumbar spines. Disc space narrowing is seen at the T12-L1 level. Otherwise, no disc space narrowing is otherwise identified in the lumbar spine. Mild to moderate posterior facet degenerative changes seen at the L3-S1 levels, greater at the L5 -S1 level. There is mild grade 1 anterolisthesis of L5 on S1, likely secondary to chronic posterior facet degenerative changes. There is no evident acute fracture or dislocation. Soft tissues unremarkable. IMPRESSION: Mild to moderate degenerative changes in the lower lumbar spine, without acute fracture. RPTAT: [facility] Physician [place] Date Time Electronically viewed and signed by Physician [place] on 04/29/2017 23:59 RS/ CC: JOSELUIS DELGADO PA-C Procedures/MDM This is a 72-year-old female presents the emergency department today complaining of low back pain and gluteal pain that goes all the way down into her leg. She did indicate that she has a history of arthritis however given patient's complaints and age I did obtain images and a UA Per the radiology report images of the lumbar spine show mild to moderate degenerative changes in the lower lumbar spine without acute fracture. There is no disc space narrowing. There is mild grade 1 anterolisthesis of L5 and S1 likely secondary to chronic posterior facet degenerative changes. UA negative for infection. There is some microscopic hematuria. Patient has no flank pain or CVA tenderness and I do not feel that she requires further evaluation for that. Patient symptoms at this time is consistent with sciatic related back pain. She is afebrile and otherwise well-appearing. She has no loss of bowel or bladder control. Low suspicion for acute fracture dislocation, cauda equina or abscess. There is no evidence to suggest urinary tract infection as cause of back pain. Patient was given Toradol here in the emergency department and symptoms improved significantly and was sitting in the waiting room comfortably talking to other patient Patient was given a prescription for tramadol for home. She already takes indomethacin and gabapentin and she may continue taking that. At this time the patient is stable for discharge and outpatient management. Patient should follow up with their PCP in the next 1-2 days. They may return to the emergency department sooner for any persistent or worsening of symptoms. Patient understood and agreed with the plan. Discussed the patient with Dr. Gibson and he is in agreement with the plan. Departure Diagnosis: Primary Impression: Back pain Back pain location: low back pain Chronicity: unspecified Back pain laterality: left Sciatica presence: with sciatica Sciatica laterality: sciatica of left side Qualified Code: M54.42 - Left-sided low back pain with left-sided sciatica, unspecified chronicity Condition: Fair JOSELUIS DELGADO PA-C Apr 30, 2017 00:11
[2017-04-30 01:02] LABS: ADD UMIC YES; UR ASCORBIC ACID NEGATIVE (NEGATIVE); UR BACTERIA FEW /HPF (NONE SEEN); UR BILIRUBIN (Dip) NEGATIVE (NEGATIVE); UR BLOOD (Dip) 2+ mg/dL (NEGATIVE); UR CLARITY SLIGHTLY CLOUDY (CLEAR); UR COLOR YELLOW (YELLOW); UR GLUCOSE (Dip) NEGATIVE (NEGATIVE); UR KETONES (Dip) NEGATIVE (NEGATIVE); UR LEUKOCYTE ESTERASE (Dip) TRACE Leu/ul (NEGATIVE); UR MUCUS FEW /HPF (NONE SEEN); UR NITRITE (Dip) NEGATIVE (NEGATIVE); UR RBC 17 /HPF (0-5); UR SPECIFIC GRAVITY (Dip) 1.025 (1.003-1.030); UR SQUAMOUS EPITHELIAL CELL FEW /HPF (FEW); UR TOTAL PROTEIN (Dip) NEGATIVE (NEGATIVE); UR UROBILINOGEN (Dip) NEGATIVE (NEGATIVE)
[2017-04-30] MEDS ORDERED: TRAM50TA2 PO (01:12)
[2017-04-30 01:30] VITALS: BP 160/70; PULSE 68; RESP 16
== END 2017-04-30 01:31 | disposition home or self-care (01) ==
LOC: FTE 20:06
DX: M54.42 Lumbago with sciatica, left side (principal); I10 Essential (primary) hypertension; Z96.652 Presence of left artificial knee joint; Z96.651 Presence of right artificial knee joint
CPT/HCPCS: 72100; 81001; 96372; J1885; Z7502

== ENCOUNTER 2017-07-21 09:31 | Inpatient (IN) | END 2017-07-26 18:30 | disposition home or self-care (01) | DRG 813 ==

== ENCOUNTER 2017-08-08 16:49 | Inpatient (IN) | END 2017-08-15 18:18 | disposition home or self-care (01) | DRG 813 ==

== ENCOUNTER 2017-08-23 22:32 | Inpatient (IN) | END 2017-08-25 18:50 | disposition home or self-care (01) | DRG 871 ==

== ENCOUNTER 2017-11-29 13:56 | Emergency (ER) | END 2017-11-29 17:54 | disposition home or self-care (01) ==

== ENCOUNTER 2018-12-06 16:02 | Emergency (ER) | payer MEDICAID ==
[~2018-12-06] VITALS: Ht 149.9 cm; Wt 92.0 kg
[~2018-12-06 16:02] MED LIST changes: -AZIT250T6 PO; -AZIT250T94 PO; -CALC500T99 PO; -DEXT1DRO OP; +FAMO-96 PO; -FLUT16SP17 NASAL; +FURO-110 PO; -GUAI118L22 PO; +GUAI5SYR2 PO; +HYDR-4011 PO; +IBUP-1542 PO; +IPRA4AER INHALATION; -LEVO25TA53 PO; +LEVO25TA6 PO; +LEVO500T10 PO; -LEVO500T72 PO; +LOSA25TA12 PO; -LOSA50TA6 PO; +METO25TA4 PO; -MONT10TA24 PO; +POTA8CAP PO; -PRED20TA PO; -TIOT18CA INH; +TRAM50TA2 PO; -UDROBDM PO; +VALA1000 PO
[2018-12-06 16:06] VITALS: Ht 149.9 cm; Wt 92.0 kg
[2018-12-06] MEDS ORDERED: KETOROLAC 30 MG INJ IM STA (17:38)
[2018-12-06] MEDS ORDERED: IBUP-1561 PO (18:39)
[2018-12-06 19:10] VITALS: BP 176/96; PULSE 62; RESP 20
--- NOTE | 2018-12-11 06:36 | ERD ---
ER Documentation Chief Complaint Chief Complaint lt side back pain radiating to lt leg x 6 months , worse today HPI 73-year-old female patient with a past medical history of hyperlipidemia, hypertension presents to ED complaining of left-sided back pain radiating to left leg about 6 months ago. Patient was brought in by grandson, states is worse today. Reports that she has had chronic back pain, but felt worse today. Denies any unilateral weakness, dizziness, slurred speech, chest pain, shortness of breath, headache, dizziness. Patient describes her pain is sharp and rates a 10 out of 10. States that she has been taking Tylenol. Reports that she did not take her blood pressure medications. Denies any saddle anesthesia, urine or bowel incontinence. ROS All systems reviewed and are negative except as per history of present illness. Medications Home Meds Active Scripts Ibuprofen* (Motrin*) 400 Mg Tab, 400 MG PO Q6, #30 TAB Prov:JULIA RUBIO PA-C 12/06/18 Tramadol HCl (Tramadol HCl) 50 Mg Tablet, 50 MG PO Q4 PRN for PAIN, #15 TAB Prov:MAYTE CALI MD 11/29/17 Ibuprofen* (Motrin*) 600 Mg Tab, 600 MG PO Q6, #20 TAB Prov:MAYTE CAIL MD 11/29/17 Guaifenesin-Dextromethorphan* (Robitussin* DM) 100MG/10MG/5ML Syrup, 10 ML PO Q6H PRN for COUGH, #150 ML Prov:JACOB MASSEY. 08/25/17 Hydrocodone/Acetaminophen ([place] 5-325 Tablet) 1 Each Tablet, 1 EACH PO Q6H PRN for PAIN, #21 TAB Prov:JACOB MASSEY. 08/25/17 valACYclovir HCl (valACYclovir) 1,000 Mg Tablet, 1000 MG PO Q8 for 7 Days, TAB Prov:JACOB MASSEY. 08/25/17 Albuterol/Ipratropium* (Combivent Respimat*) 20-100 Mcg/Inh - 4 Gm Aer.w.adap, 1 PUFF INHALATION Q4H WHILE AWAKE for 3 Days, #1 INHALER Prov:JACOB MASSEY 08/25/17 Potassium Chloride* (Potassium Chloride*) 8 Meq Capsule.er, 8 MEQ PO DAILY for 5 Days, CAP Prov:JACOB MASSEY . 08/25/17 Furosemide* (Lasix*) 20 Mg Tablet, 20 MG PO DAILY for 3 Days, TAB Prov:JACOB MASSEY . 08/25/17 Losartan Potassium* (Losartan Potassium*) 25 Mg Tablet, 25 MG PO DAILY for 30 Days, TAB 2 [facility] 08/25/17 Metoprolol Tartrate* (Lopressor*) 25 Mg Tablet, 25 MG PO BID, #60 TAB 2 Refills Prov[facility]. 08/25/17 Levofloxacin* (Levofloxacin*) 500 Mg Tablet, 500 MG PO DAILY for 5 Days, TAB Prov[facility]. 08/25/17 Salmeterol Xinaf/Fluticasone* (Advair*) 250-50 Diskus Inhaler, 1 INH INH BID for 30 Days, #1 VIAL 1 Refill Prov[facility]. 08/25/17 Famotidine* (Pepcid*) 20 Mg Tablet, 20 MG PO BID, #60 TAB Prov:BRET GALLARDO V. JUMPBASTING MACHINE OPERATOR 07/26/17 Reported Medications Atorvastatin* (Atorvastatin*) 40 Mg Tablet, 40 MG PO QHS, #30 TAB 08/24/17 Levothyroxine Sodium* (Levothyroxine Sodium*) 25 Mcg Tablet, 25 MCG PO BEFORE BREAKFAST, #30 TAB 10/02/15 Allergies Allergies: Coded Allergies: No Known Allergy (Unverified , 07/21/17) PMhx/Soc History of Surgery: Yes (chyolecystectomy, c section x3, bilateral knee surgery) Anesthesia Reaction: No Hx Neurological Disorder: No Hx Respiratory Disorders: Yes (pneumonia ) Hx Cardiac Disorders: Yes (htn, diyslipidemia) Hx Psychiatric Problems: No Hx Miscellaneous Medical Probl: Yes (itp,thyroid, arthritis) Hx Alcohol Use: No Hx Substance Use: No Hx Tobacco Use: No Smoking Status: Never smoker FmHx Family History: No diabetes, No coronary disease Physical Exam Vitals Temperature 98.1 Pulse 81 Systolic blood pressure 175 Diastolic blood pressure 80 Respiratory rate 18 O2 sat 97 Pain intensity 10 Physical Exam Const: No acute distress Head: Atraumatic Eyes: Normal Conjunctiva ENT: Normal External Ears, Nose and Mouth. Neck: Full range of motion. No meningismus. Resp: Clear to auscultation bilaterally Cardio: Regular rate and rhythm, no murmurs Abd: Soft, non tender, non distended. Normal bowel sounds. Negative McBurney's point. Skin: No petechiae or rashes Back: No midline or flank tenderness. Tenderness to palpation of left lumbar muscles. Positive left straight leg test. Ext: No cyanosis, or edema Neur: Awake and alert Psych: Normal Mood and Affect Results 24 hrs Current Medications Medications Dose Sig/Juju Start Time Status Last (Trade) Ordered Route PRN Stop Time Admin Dose Reason Admin Ketorolac 30 mg ONCE STAT 12/06/18 DC 12/06/18 Tromethamine IM 17:38 17:46 (Toradol) 12/06/18 17:39 Procedures/MDM 33-year-old female patient with a past medical history of hyperlipidemia, hypertension presents to the ED sided back pain radiates to her left legs for about 6 months ago. Patient has positive straight leg test, likely back pain with sciatica. Patient is ambulating here in the ED without difficulty. Denies saddle anesthesia, numbness or tingling, urine or bowel incontinence, weakness. Low suspicion for cauda equina syndrome, cord compression, nephrolithiasis, aortic aneurysm, aortic dissection, epidural abscess, spinal hematoma, malignancy, pyelonephritis, or other emergent conditions. Diagnosis: Back pain Discharge medications: Ibuprofen Follow up with primary care physician in 1-2 days. Instructed patient to return to the ED sooner for any worsening symptoms. Patient's questions were answered. Patient is hemodynamically stable. Patient understood and agreed with discharge plan. Patient discharged stable. Disclaimer: Inadvertent spelling and grammatical errors are likely due to EHR/dictation software use and do not reflect on the overall quality of patient care. Also, please note that the electronic time recorded on this note does not necessarily reflect the actual time of the patient encounter. Departure Diagnosis: Primary Impression: Back pain Back pain location: back pain in unspecified location Chronicity: unspecified Back pain laterality: unspecified Qualified Codes: M54.9 - Dorsalgia, unspecified Condition: Good Patient Instructions: Back Pain W/ Sciatica, Shoulder Pain (Uncertain Cause) Referrals: [facility] [place]) Usted se hall hecho un examen mdico de control que le indica que no est en rj condicin que requiera tratamiento urgente en el Departamento de Emergencia. Un estudio ms profundo y el tratamiento de perdue condicin pueden esperar sin ningn riesgo hasta que usted sea atendida/o en el consultorio de perdue mdico o rj clnica. Es responsabilidad suya arreglar rj sunita para el seguimiento del peter. MANEJO DE CONDICIONES NO URGENTES EN EL FUTURO 1) Si usted tiene un mdico de atencin primaria: Usted debera llamar a perdue mdico de atencin primaria antes de venir al departamento de emergencia. Despus de las horas de consultorio, perdue doctor o perdue asociado/a est disponible por telfono. El mdico o enfermero de natalia en el servicio telefnico puede asesorarle por catherine medio para atender el problema, o peter contrario se puede programar rj sunita. 2) Si usted no tiene un mdico de atencin primaria: Llame al mdico o clnica de referencia que aparece abajo jax las horas de consultorio para hacer rj sunita para que le vean. CLINICAS: [facility] [phone] [facility] [phone] [facility] [phone] [facility]. [facility] [phone] [facility]. [place] [phone] [facility]. [phone] [address] [facility] ([place]) Usted se hall hecho un examen mdico de control que le indica que no est en rj condicin que requiera tratamiento urgente en el Departamento de Emergencia. Un estudio ms profundo y el tratamiento de perdue condicin pueden esperar sin ningn riesgo hasta que usted sea atendida/o en el consultorio de perdue mdico o rj clnica. Es responsabilidad suya arreglar rj sunita para el seguimiento del peter. MANEJO DE CONDICIONES NO URGENTES EN EL FUTURO 1) Si usted tiene un mdico de atencin primaria: Usted debera llamar a perdue mdico de atencin primaria antes de venir al departamento de emergencia. Despus de las horas de consultorio, perdue doctor o perdue asociado/a est disponible por telfono. El mdico o enfermero de natalia en el servicio telefnico puede asesorarle por catherine medio para atender el problema, o peter contrario se puede programar rj sunita. 2) Si usted no tiene un mdico de atencin primaria: Llame al mdico o condado institucions de referencia que aparece abajo jax las horas de consultorio para hacer rj sunita para que le vean. SI USTED NO PUEDE PAGAR PARA CHUCK UN MEDICO puede ir a: [facility] [id number] [place] [address] [facility] [address] [place] [address] [facility] [address] [place] [address] [facility]A [facility] [address] [place], [place] [id number] Additional Instructions: Llame al doctor MAANA y robert rj SUNITA PARA DENTRO DE 2-3 MAJOR.Dgale a la secretaria que nosotros le instruimos hacer esta sunita.Avise o llame si perdue condicin se empeora antes de la sunita. Regresa aqui si peor o no mejor. JULIA RUBOI PA-C December 11, 2018 06:36
== END 2018-12-06 19:12 | disposition home or self-care (01) ==
LOC: FTE 16:02
DX: M54.5 Low back pain (principal); I10 Essential (primary) hypertension
CPT/HCPCS: 72100; 73030; J1885; 96372

== ENCOUNTER 2019-01-12 14:09 | Emergency (ER) | payer MEDICAID ==
[~2019-01-12] VITALS: Ht 142.2 cm; Wt 89.4 kg
[~2019-01-12 14:09] MED LIST changes: +IBUP-1561 PO
[2019-01-12 14:15] VITALS: Ht 142.2 cm; Wt 89.4 kg
[2019-01-12] MEDS ORDERED: ALBUTEROL 0.5% (NEB) 2.5 MG/0.5 ML AMP INH STA (15:27)
[2019-01-12] MEDS ORDERED: IPRATROPIUM (NEB) 0.5 MG/2.5 ML AMP INH STA (15:27)
[2019-01-12] MEDS ORDERED: ATOR40TA68 PO (16:38)
[2019-01-12] MEDS ORDERED: LEVO25TA6 PO (16:39)
[2019-01-12] MEDS ORDERED: LOSA25TA12 PO (16:39)
[2019-01-12] MEDS ORDERED: OMEP20CA16 PO (16:43)
[2019-01-12] MEDS ORDERED: SOD CHLORIDE 0.9% 1,000 ML IV STA (17:37)
--- NOTE | 2019-01-12 17:53 | ERD ---
ER Documentation Chief Complaint Chief Complaint SOB X 1 MOS HPI This is a 73-year-old female with a past medical history of hypertension. The patient presents to the emergency department today complaining of shortness of breath for 1 month. She states her symptoms have progressively worsened. She states she has had no fevers no shaking no chills. She has an inhaler at home which she is utilize but does not improve her symptoms. She stated 1 year ago she had similar symptoms and was diagnosed with pneumonia. She denies any swelling of her lower extremities. She is had no recent travel or prolonged immobilization. She has not taken any antipyretics prior to arrival. ROS All systems reviewed and are negative except as per history of present illness. Medications Home Meds Active Scripts Ibuprofen* (Motrin*) 400 Mg Tab, 400 MG PO Q6, #30 TAB Prov:JULIA RUBIO PA-C 12/06/18 Reported Medications Omeprazole* (Omeprazole*) 20 Mg Capsule.dr, 20 MG PO DAILY, #30 CAP 01/12/19 Losartan Potassium* (Losartan Potassium*) 25 Mg Tablet, 25 MG PO DAILY, TAB 01/12/19 Levothyroxine Sodium* (Levothyroxine Sodium*) 25 Mcg Tablet, 25 MCG PO BEFORE BREAKFAST, #30 TAB 01/12/19 Atorvastatin* (Atorvastatin*) 40 Mg Tablet, 40 MG PO QHS, #30 TAB 01/12/19 Discontinued Reported Medications Atorvastatin* (Atorvastatin*) 40 Mg Tablet, 40 MG PO QHS, #30 TAB 08/24/17 Levothyroxine Sodium* (Levothyroxine Sodium*) 25 Mcg Tablet, 25 MCG PO BEFORE BREAKFAST, #30 TAB 10/02/15 Discontinued Scripts Tramadol HCl (Tramadol HCl) 50 Mg Tablet, 50 MG PO Q4 PRN for PAIN, #15 TAB Prov:MAYTE CALI MD 11/29/17 Ibuprofen* (Motrin*) 600 Mg Tab, 600 MG PO Q6, #20 TAB Prov:MAYTE CALI MD 11/29/17 Guaifenesin-Dextromethorphan* (Robitussin* DM) 100MG/10MG/5ML Syrup, 10 ML PO Q6H PRN for COUGH, #150 ML Prov:JACOB MASSEY 08/25/17 Hydrocodone/Acetaminophen ([place] 5-325 Tablet) 1 Each Tablet, 1 EACH PO Q6H PRN for PAIN, #21 TAB Prov:JACOB MASSEY . 08/25/17 valACYclovir HCl (valACYclovir) 1,000 Mg Tablet, 1000 MG PO Q8 for 7 Days, TAB Prov:JACOB MASSEY . 08/25/17 Albuterol/Ipratropium* (Combivent Respimat*) 20-100 Mcg/Inh - 4 Gm Aer.w.adap, 1 PUFF INHALATION Q4H WHILE AWAKE for 3 Days, #1 INHALER Prov:JACOB MASSEY . 08/25/17 Potassium Chloride* (Potassium Chloride*) 8 Meq Capsule.er, 8 MEQ PO DAILY for 5 Days, CAP Prov:JACOB MASSEY . 08/25/17 Furosemide* (Lasix*) 20 Mg Tablet, 20 MG PO DAILY for 3 Days, TAB Prov:JACOB MASSEY . 08/25/17 Losartan Potassium* (Losartan Potassium*) 25 Mg Tablet, 25 MG PO DAILY for 30 Days, TAB 2 Refills Prov:JACOB MASSEY . 08/25/17 Metoprolol Tartrate* (Lopressor*) 25 Mg Tablet, 25 MG PO BID, #60 TAB 2 Refills Prov:JACOB MASSEY . 08/25/17 Levofloxacin* (Levofloxacin*) 500 Mg Tablet, 500 MG PO DAILY for 5 Days, TAB Prov:JACOB MASSEY . 08/25/17 Salmeterol Xinaf/Fluticasone* (Advair*) 250-50 Diskus Inhaler, 1 INH INH BID for 30 Days, #1 VIAL 1 Refill Prov:JACOB MASSEY . 08/25/17 Famotidine* (Pepcid*) 20 Mg Tablet, 20 MG PO BID, #60 TAB Prov:BRET GALLARDO NP 07/26/17 Allergies Allergies: Coded Allergies: No Known Allergy (Unverified , 01/12/19) PMhx/Soc History of Surgery: Yes (chyolecystectomy, c section x3, bilateral knee surgery) Anesthesia Reaction: No Hx Neurological Disorder: No Hx Respiratory Disorders: Yes (pneumonia ) Hx Cardiac Disorders: Yes (htn, diyslipidemia) Hx Psychiatric Problems: No Hx Miscellaneous Medical Probl: Yes (itp,thyroid, arthritis) Hx Alcohol Use: No Hx Substance Use: No Hx Tobacco Use: No Smoking Status: Never smoker Physical Exam Vitals Vital Signs Date Temp Pulse Resp B/P (MAP) Pulse Ox O2 O2 Flow FiO2 Time Delivery Rate 01/12/19 99.4 100 20 118/65 97 Room Air 17:47 (82) 01/12/19 76 20 100 Nasal 2.0 16:51 Cannula 01/12/19 99.4 83 20 97/53 (68) 97 Room Air 16:45 01/12/19 Nasal 2 15:34 Cannula 01/12/19 99.4 98 20 126/115 97 Room Air 15:34 (119) 01/12/19 99.0 89 18 174/72 98 14:15 (106) Physical Exam Constitutional:Well-developed. Well-nourished. HEENT:Normocephalic. Atraumatic.Pupils were equal round reactive to light. Dry mucous membranes.No tonsillar exudates. Neck: No nuchal rigidity. No lymphadenopathy. No posterior cervical spine tenderness or step-offs. Respiratory: Not using accessory muscles of respiration.Lungs were clear to auscultation bilaterally. No rhonchi. No rales. Wheezing bilaterally Cardiovascular: Regular rate regular rhythm.No murmurs. No rubs were appreciate d.S1, S2 normal. Distal pulses are palpable 2+ bilaterally. GI: Abdomen was soft. Nontender. Non Distended. No pulsatile abdominal masses or bruits. No rebound. No guarding. Bowel sounds were present and normal. Muscle skeletal: Full range of motion of both the upper and lower extremities bilaterally.Normal muscle tone.No assymetrical calf tenderness or swelling. Skin: Diaphoretic. No petechia, no purpura. No lesions on the palms or the soles of the feet. No maculopapular rash. NEURO: Patient was alert, awake, orientated x3.No facial droop. Gait observed and normal with no ataxia.Speech had regular rate and rhythm. No focal neurological deficits. Result Diagram: 01/12/19 1527 01/12/19 1527 Results 24 hrs Laboratory Tests Test 01/12/19 15:27 01/12/19 15:29 White Blood Count 16.3 10^3/ul Red Blood Count 4.54 10^6/ul Hemoglobin 13.2 g/dl Hematocrit 39.8 % Mean Corpuscular Volume 87.7 fl Mean Corpuscular Hemoglobin 29.1 pg Mean Corpuscular Hemoglobin Concent 33.2 g/dl Red Cell Distribution Width 17.0 % Platelet Count 308 10^3/UL Mean Platelet Volume 9.6 fl Immature Granulocytes % 0.700 % Neutrophils % 77.2 % Lymphocytes % 13.0 % Monocytes % 8.3 % Eosinophils % 0.4 % Basophils % 0.4 % Nucleated Red Blood Cells % 0.0 /100WBC Immature Granulocytes # 0.110 10^3/ul Neutrophils # 12.6 10^3/ul Lymphocytes # 2.1 10^3/ul Monocytes # 1.4 10^3/ul Eosinophils # 0.1 10^3/ul Basophils # 0.1 10^3/ul Nucleated Red Blood Cells # 0.0 10^3/ul Prothrombin Time 14.4 Sec Prothrombin Time Ratio 1.1 INR International Normalized Ratio 1.11 Activated Partial Thromboplast Time 30.9 Sec D-Dimer 1199.76 ng/ml D-Dimer Comment Sodium Level 144 mmol/L Potassium Level 4.5 mmol/L Chloride Level 100 mmol/L Carbon Dioxide Level 30 mmol/L Anion Gap 14 Blood Urea Nitrogen 14 mg/dl Creatinine 1.07 mg/dl Est Glomerular Filtrat Rate mL/min mL/min Glucose Level 117 mg/dl Calcium Level 9.6 mg/dl Total Bilirubin 1.4 mg/dl Direct Bilirubin 0.00 mg/dl Indirect Bilirubin 1.4 mg/dl Aspartate Amino Transf (AST/SGOT) 34 IU/L Alanine Aminotransferase (ALT/SGPT) 23 IU/L Alkaline Phosphatase 106 IU/L Creatine Kinase 157 IU/L Creatine Kinase Index 0.6 Creatinine Kinase MB (Mass) 0.99 ng/ml Troponin I < 0.012 ng/ml B-Type Natriuretic Peptide 234 PG/ML Total Protein 7.9 g/dl Albumin 4.3 g/dl Globulin 3.60 g/dl Albumin/Globulin Ratio 1.19 POC Venous Lactate 1.8 mmol/L Current Medications Medications Dose Sig/Juju Start Time Status Last (Trade) Ordered Route PRN Stop Time Admin Dose Reason Admin Albuterol 10 mg ONCE STAT 01/12/19 DC 01/12/19 (Proventil INH 15:27 16:42 0.5% (Neb)) 01/12/19 15:29 Ipratropium 1 mg ONCE STAT 01/12/19 DC 01/12/19 [place]xton INH 15:27 16:42 (Atrovent 01/12/19 15:29 0.02% (Neb)) Sodium 1,000 ml @ Q1H STAT 01/12/19 Chloride 1,000 mls/hr IV 17:37 01/12/19 18:36 Benzonatate 200 mg ONCE ONCE 01/12/19 (Tessalon) PO 18:00 01/12/19 18:01 Procedures/[facility] The patient presented to the emergency department with shortness of breath. My differential diagnosis included but was not limited to upper airway obstruction, CHF, pulmonary embolism, cardiac ischemia, pneumonia, pneumothorax, anemia, drug overdose, pulmonary edema, COPD or asthma. 12 Lead EKG tracing ordered and reviewed by myself showed: Sinus tachycardia 101 bpm and no arrhythmia. IN interval normal. QRS duration normal. No ST segment elevation with left axis deviation No ST segment depression. No changes consistent with acute ischemia. I did a chest radiograph and there is no evidence of pneumonia or pulmonary vascular congestion since to suggest congestive heart failure. The patient's BNP is 234. I did not feel the patient's symptoms were result of congestive heart failure. The patient had leukocytosis on my clinical suspicion was low for sepsis. The patient was afebrile and felt her tachypnea was a result of her severe respiratory distress as result of bronchitis versus sepsis. The patient has a low pretest probability according to the Wells criteria for pulmonary embolism. Therefore obtained a d-dimer. This was elevated. The patient underwent a CT angiogram of her chest. She had received nebulizer t reatments of albuterol and Atrovent. Her wheezing had completely resolved. Given that there is no evidence of a pulmonary embolism or underlying infiltrate seen on the CT scan I did feel this could be a result of acute bronchitis. The patient felt comfortable being discharged home. She was given antitussives as well in the emergency department. She was sent home with azithromycin, nebulizer inhaler and Tessalon Perles. The patient was discharged home in fair condition. They were instructed to return to the emergency department at any time if there was any worsening of their condition. The patient stated they would follow up with their PCP in the next 24-48 hours to initiate a suitable medication regimen under the care of their PCP as well as to allow their PCP to monitor any drug reactions. The patient was discharged home with prescriptions after they gave informed consent to the new medication. They were also fully informed by myself on the adverse effects and adverse drug interactions in order to provide adequate safeguards to prevent possible adverse reactions to medications. Departure Diagnosis: Primary Impression: Bronchitis Additional Impression: Shortness of breath Condition: HERMELINDA Bright MD Jan 12, 2019 17:53
[2019-01-12] MEDS ORDERED: BENZONATATE 100 MG CAP PO ONE (18:00)
[2019-01-12] MEDS ORDERED: SOD CHLORIDE 0.9% 100 ML ONE (18:30)
[2019-01-12] MEDS ORDERED: IOHEXOL 100 ML ONE (18:31)
[2019-01-12] MEDS ORDERED: AZIT250T PO (19:42)
[2019-01-12] MEDS ORDERED: BENZ-6 PO (19:42)
[2019-01-12] MEDS ORDERED: ALBU8.5H8 INH (19:42)
[2019-01-12 19:59] VITALS: BP 122/82; PULSE 74; RESP 20
== END 2019-01-12 20:00 | disposition home or self-care (01) ==
LOC: E/R 14:09
DX: J40 Bronchitis, not specified as acute or chronic (principal); I10 Essential (primary) hypertension
CPT/HCPCS: 71045; 71275; 80053; 82550; 82553; 83605; 83880; 84484; 85025; 85378; 85610; 85730; 87040; 93005; 94644; J7030; Q9967; Z7502; Z7610

== ENCOUNTER 2019-01-20 11:44 | Emergency (ER) | payer MEDICAID ==
[~2019-01-20] VITALS: Wt 89.1 kg
[~2019-01-20 11:44] MED LIST changes: -ADV25050 INH; +ALBU8.5H8 INH; +AZIT250T PO; +BENZ-6 PO; -FAMO-96 PO; -FURO-110 PO; -GUAI5SYR2 PO; -HYDR-4011 PO; -IBUP-1542 PO; -IPRA4AER INHALATION; -LEVO500T10 PO; -METO25TA4 PO; +OMEP20CA16 PO; -POTA8CAP PO; -TRAM50TA2 PO; -VALA1000 PO
[2019-01-20 11:46] VITALS: BP 159/79; PULSE 79; RESP 18
[2019-01-20] MEDS ORDERED: ALBUTEROL 0.083% (NEB) 2.5 MG/3 ML AMP HHN STA (12:19)
[2019-01-20] MEDS ORDERED: IPRATROPIUM (NEB) 0.5 MG/2.5 ML AMP HHN ONE (12:30)
[2019-01-20] MEDS ORDERED: DEXAMETHASONE 10 MG/ML 1 ML INJ IM ONE (12:30)
[2019-01-20] MEDS ORDERED: ALBU18HF INHALATION (13:16)
[2019-01-20] MEDS ORDERED: PRED20TA PO (13:16)
[2019-01-20] MEDS ORDERED: BENZ-6 PO (13:16)
[2019-01-20] MEDS ORDERED: ADV25050 INHALATION (13:17)
--- NOTE | 2019-01-20 13:20 | ERD ---
ER Documentation Chief Complaint Chief Complaint seen here extensively work up done dx bronchitis still coughing HPI 73-year-old female presents with approximate 1 month history of cough and wheeze. She was seen here approximately 1 week ago and had extensive evaluation including CT Angio which showed no PE or infiltrates or additional acute abnormalities. She was evaluated for CHF as well which showed no findings to suggest pulmonary edema or cause of cough. She found some relief with the unspecified pills she was prescribed last visit. She was given Zithromax as well as Tessalon Perles and Ventolin. Denies fevers, hemoptysis, leg swelling, chest pain. ROS All systems reviewed and are negative except as per history of present illness. Medications Home Meds Active Scripts Salmeterol Xinaf/Fluticasone* (Advair*) 250-50 Diskus Inhaler, 1 INH INHALATION BID, #1 INHALER Prov:MAYTE CALI MD 01/20/19 Benzonatate* (Tessalon Perle*) 100 Mg Capsule, 100 MG PO Q8H PRN for COUGH, #20 CAP Prov:MAYTE CALI MD 01/20/19 Prednisone* (Prednisone*) 20 Mg Tab, 40 MG PO DAILY for 4 Days, TAB Start January 21, 2019 Prov:MAYTE CALI MD 01/20/19 Benzonatate* (Tessalon Perle*) 100 Mg Capsule, 100 MG PO Q8H PRN for COUGH, #20 CAP Prov:HERMELINDA GALEANA MD 01/12/19 Albuterol Sulfate* (Proair HFA*) 8.5 Gm Hfa.aer.ad, 2 PUFF INH Q4H PRN for WHEEZING AND SOB, #1 INHALER Prov:HERMELINDA GALEANA MD 01/12/19 Azithromycin* (Zithromax*) 250 Mg Tablet, 250 MG PO .ZPACK DIRECTED, #6 TAB TAKE 500 MG (2 TABS) THE FIRST DAY THEN 250 MG (1 TAB) DAYS 2-5 Prov:HERMELINDA GALEANA MD 01/12/19 Ibuprofen* (Motrin*) 400 Mg Tab, 400 MG PO Q6, #30 TAB Prov:JULIA RUBIO PA-C 12/06/18 Reported Medications Omeprazole* (Omeprazole*) 20 Mg Capsule.dr, 20 MG PO DAILY, #30 CAP 01/12/19 Losartan Potassium* (Losartan Potassium*) 25 Mg Tablet, 25 MG PO DAILY, TAB 01/12/19 Levothyroxine Sodium* (Levothyroxine Sodium*) 25 Mcg Tablet, 25 MCG PO BEFORE BREAKFAST, #30 TAB 01/12/19 Atorvastatin* (Atorvastatin*) 40 Mg Tablet, 40 MG PO QHS, #30 TAB 01/12/19 Discontinued Scripts Albuterol Sulfate* (Ventolin HFA*) 18 Gm Hfa.aer.ad, 2 PUFF INHALATION Q4H, #1 INHALER Prov:MAYTE CALI MD 01/20/19 Allergies Allergies: Coded Allergies: No Known Allergy (Unverified , 01/12/19) PMhx/Soc History of Surgery: Yes (chyolecystectomy, c section x3, bilateral knee surgery) Anesthesia Reaction: No Hx Neurological Disorder: No Hx Respiratory Disorders: Yes (pneumonia ) Hx Cardiac Disorders: Yes (htn, diyslipidemia) Hx Psychiatric Problems: No Hx Miscellaneous Medical Probl: Yes (itp,thyroid, arthritis) Hx Alcohol Use: No Hx Substance Use: No Hx Tobacco Use: No Smoking Status: Never smoker FmHx Family History: No diabetes, No coronary disease, No other Physical Exam Vitals Vital Signs Date Temp Pulse Resp B/P (MAP) Pulse Ox O2 O2 Flow FiO2 Time Delivery Rate 01/20/19 80 18 98 12:37 01/20/19 98.1 79 18 159/79 97 11:46 (105) Physical Exam Const: No acute distress Head: Atraumatic Eyes: Normal Conjunctiva ENT: Normal External Ears, Nose and Mouth. TMs and oropharynx normal. Neck: Full range of motion. No meningismus. Resp: Clear to auscultation bilaterally. Mild diffuse wheezing without rales or retractions. Cardio: Regular rate and rhythm, no murmurs Abd: Soft, non tender, non distended. Normal bowel sounds Skin: No petechiae or rashes Back: No midline or flank tenderness Ext: No cyanosis, or edema Neur: Awake and alert Psych: Normal Mood and Affect Results 24 hrs Current Medications Medications Dose Sig/Juju Start Time Status Last (Trade) Ordered Route PRN Stop Time Admin Dose Reason Admin 10 mg ONCE ONCE 01/20/19 DC 01/20/19 Dexamethasone IM 12:30 01/20/19 12:30 (Decadron) 12:31 Albuterol 5 mg ONCE STAT 01/20/19 DC 01/20/19 (Proventil HHN 12:19 01/20/19 12:37 0.083% (Neb)) 12:21 Ipratropium 1 mg ONCE ONCE 01/20/19 DC 01/20/19 [facility] 12:30 01/20/19 12:37 (Atrovent 12:31 0.02% (Neb)) Procedures/MDM Patient presents with coughing and wheezing intermittently for last few weeks. She had a evaluation including CT angio 1 week ago without findings of infiltrate, PE, additional acute abnormalities. She has been treated empirically with Zithromax which would cover pertussis. doubt CHF given previous studies. Gastroesophageal reflux consideration but she is advised to follow-up with primary doctor for no improvement despite treatment here. SHe was given albuterol treatment, Decadron 10 mg IM will be treated with Advair, continuation of Tessalon, short course of prednisone starting tomorrow, recommendations for primary care follow-up and return precautions. The patient was stable with no n ew complaints during the ER course. Clinically, there is no current evidence to suggest meningitis, sepsis, acute abdomen, pneumonia, stroke, acute coronary syndrome, pulmonary embolism, aortic dissection or any other emergent condition appearing to require further evaluation or hospitalization. Patient counseled regarding my diagnostic impression and care plan. Prior to discharge all questions answered. Pt agrees with treatment plan and understands strict return precautions. Pt is instructed to follow up with primary care provider within 24- 48 hours. Precautionary instructions provided including instructions to return to the ER if not improving or for any worsening or changing symptoms or concerns. Disclaimer: Inadvertent spelling and grammatical errors are likely due to EHR/dictation software use and do not reflect on the overall quality of patient care. Also, please note that the electronic time recorded on this note does not necessarily reflect the actual time of the patient encounter. Departure Diagnosis: Primary Impression: Reactive airway disease Asthma severity: unspecified severity Asthma persistence: unspecified Asthma complication type: uncomplicated Qualified Codes: J45.909 - Unspecified asthma, uncomplicated Additional Impression: Cough Condition: Stable Patient Instructions: Uri, Viral W/ Wheezing (Adult) Additional Instructions: . Cheque otro vez con perdue doctor primario en el proximo quinn or regresa para mas o nueva simptomas. MAYTE CALI MD Jan 20, 2019 13:20
== END 2019-01-20 13:40 | disposition home or self-care (01) ==
LOC: FTE 11:44
DX: J45.901 Unspecified asthma with (acute) exacerbation (principal); I11.0 Hypertensive heart disease with heart failure; I50.9 Heart failure, unspecified
CPT/HCPCS: 94644; 96372; J1100; Z7502; Z7610